=== PATIENT | female | born 1925 | race Caucasian/White ===

== ENCOUNTER → 2016-04-22 | Outpatient (CLI) | payer SELFPAY ==
[2016-04-22 14:15] LABS: CREATININE, URINE 120.3 MG/DL (15-500)
== END ==
LOC: LAB 13:24
PROVIDERS: ATTEND Nurse Practitioner
DX: G30.1 Alzheimer's disease with late onset (principal)
CPT/HCPCS: 82043; 84443

== ENCOUNTER 2016-04-27 14:24 | Emergency (ER) | payer SELFPAY ==
[2016-04-27 14:43] VITALS: RESP 12; TEMP 96.1
[2016-04-27] MEDS ORDERED: NORMAL SALINE 10 ML SYRINGE FLUSH IVP PRN (15:21)
[2016-04-27] MEDS ORDERED: Sodium Chloride 0.9% 1,000 ML PRIMARY IV ONE (15:21)
--- NOTE | 2016-04-27 15:31 | PDOC ---
Fall HPI - General Chief Complaint: Lower Extremity Problem/Injury Stated Complaint: fall, right hip pain Date Seen by Provider: 04/27/16 Time Seen by Provider: 14:35 Source: POSITIVE: Patient Exam Limitations: POSITIVE: No limitations Nurse's Notes Reviewed & Considered: Yes - History of Present Illness Initial Comments: The patient is an 89-year-old female who is brought to the emergency department by ambulance after sustaining a fall yesterday and is now nonambulatory and seems to be complaining of pain in her right hip. She has a history of advanced dementia and currently lives at the care home. She is apparently ambulatory at baseline. She had a fall yesterday that was unwitnessed. Since then she has been unable to bear weight primarily on her right leg. Her guardian is her [id number] who lives in [place]. She was contacted earlier today and she had recommended that the patient be evaluated in the emergency room. On her advanced directives she had signed that she did not want any aggressive or nonaggressive evaluation or treatment or hospitalization. However after the patient's arrival I did contact her guardian and she stated if she had some type of injury that she would want her evaluated and potentially treated even with surgery if it would help her. History is difficult to obtain from the patient. She denies any pain on arrival. Have you received a tetanus shot in the past 10 years?: Unknown - Patient Home Medications Home Medications: Home Medications Acetaminophen [Tylenol] 1 tab PO Q4H PRN tab 04/10/16 Diphenhydramine HCl [Benadryl] 1 tab PO QHS PRN cap 04/10/16 Polyethylene Glycol 3350 [Miralax] 17 gm PO DAILY PRN packet 04/10/16 Quetiapine Fumarate [Seroquel] 1 tab PO BID #60 tab 04/16/16 - Patient Allergies Allergies/Adverse Reactions: Allergies Allergy/AdvReac Type Severity Reaction Status Date / Time No Known Allergies Allergy Unverified 04/27/16 14:29 Past Medical History - heen HEENT History: Denies History Cardiovascular History: Denies History Respiratory History: Denies History Gastrointestinal History: Denies History Genitourinary History: Denies History Endocrine History: Denies History Musculoskeletal History: Denies History Prosthesis or Implant: No Neurological History: Dementia, Alzheimer's Blood Disorders: Denies History Psychiatric History: Denies History Female Reproductive History: Denies History Obstetrical History: Denies History Cancer History: Denies History In Past Year Been Physically Harmed or Verbally Threatened: No History of MDRO: No Tobacco Use: Unknown If Ever Smoked Alcohol Use: None Substance Use Type: None Past Medical History Reviewed: Reviewed - No Changes ROS - Limitations ROS Limitations: Clinical Condition (Patient has advanced dementia) Fall Physical Exam - General Appearance General Appearance: POSITIVE: Other (The patient is awake. She denies pain. History is difficult secondary to dementia) - HEENT HEENT: POSITIVE: Head Inspection Nml, Eyes Inspection Nml, Ears Inspection Nml, Dry Mucous Membranes - Neck Neck: POSITIVE: Trachea Midline - Respiratory / CVS Respiratory / CVS: POSITIVE: Breath Sounds Normal, No Respiratory Distress Peripheral Pulses: Dorsalis-pedis (R): 2+, Dorsalis-pedis (L): 2+ - Abdomen Abdomen: Soft: (All Quadrants), Denies Tenderness: (All Quadrants), No Distention: (All Quadrants) Additional Abdominal Details: Pelvis is grossly stable to palpation - Neuro / Psych Neuro / Psych: POSITIVE: Other (No focal neurologic deficit) - Skin Skin: POSITIVE: Intact - Extremities Additional Extremities Details: She has edema in both extremities bilaterally, with passive range of motion of both hips she does not seem to have significant pain or limitation, however the patient is not overly cooperative with exam, there is no obvious rotation or foreshortening of either lower extremity Fall Progress - Results Reviewed by me Xrays/CTs/US Reviewed by me: Yes Discussed with Radiologist: Yes Radiology Findings: I thought initially on the x-ray of her right hip that she might have a pubic ramus fracture on the right and possibly something with the acetabulum on the left. This was read as no fracture per radiologist. Subsequent CT scan of the pelvis and hips revealed no evidence of fracture per radiologist. - Patient's Progress MDM / ED Course: As mentioned her initial advance directives showed that she did not want any even simple tests or hospitalization as signed per her guardian. After the patient's arrival I did contact her guardian and she stated that she would want her evaluated and treated if she has some type of injury. She was thinking when she signed the paperwork more along the lines of a pneumonia or some medical illness. Therefore x-ray of her hip and pelvis was obtained. She did apparent pelvic x-ray on my interpretation and a CT was ordered for clarification. The hip x-ray was read as negative for fracture by the radiologist and her subsequent CT of the pelvis and hips was also negative for fracture per radiologist. At this point it is unclear what is causing her pain. It is possible that she may have some sciatica or some other occult injury. It is very difficult to obtain any history from the patient and none of her responses seem reliable. I did discuss these findings with the patient' s guardian Brian. The patient will be allowed to go back to the care home. We'll continue Tylenol or ibuprofen as needed for pain and will return to the emergency room if she has any new area of concern, worsening or change in symptoms. She will follow-up with her primary care provider in 5-7 days. I did discuss these findings with the care home staff as well. - Consult Counseled: POSITIVE: Family, RE: Radiology Results, RE: DX, RE: Need for F/U Patient Care Time - Estimated PCT Patient Care Time (In Minutes): 35 Vital Signs - Recent Vital Signs Vital Signs: Vital Signs (Last 8 hours) Temp Pulse Resp BP Pulse Ox 04/27/16 14:33 96.1 F L 66 12 123/55 98 - VS Reviewed Vital Signs Reviewed: Yes Discharge Clinical Impression: Fall, Hip pain, Dementia Condition: Fair Patient Instructions Given at Discharge: Leg Pain (ED) Additional Instructions: The CAT scan of the pelvis and hips did not reveal any obvious fracture. At this point it is unclear what is causing her pain. She will return to the care home. Recommend Tylenol or ibuprofen as needed for pain. Return to the emergency room if she has a different area of concern or if she has no improvement or worsening. Her guardian Brian is aware of current findings and recommendations and in agreement. Follow Up With: ANGELA TORRE [Primary Care Provider] -
--- NOTE | 2016-04-27 15:58 | DI ---
HISTORY: Right hip pain after fall. FINDINGS: There is no evidence of an acute fracture seen within the right hip or pelvis. No disloca tions are apparent. There are no gross soft tissue abnormalities identified. IMPRESSION: 1. No acute osseous abnormalities.
--- NOTE | 2016-04-27 16:13 | DI ---
HISTORY: Right hip pain after fall. TECHNIQUE: Contiguous axial images of the pelvis were obtained and submitted for interpretation. FINDINGS: No fracture is seen within the hips or pelvis. No dislocations are apparent. There are n o gross soft tissue abnormalities identified. There is a 2.6 cm low density lesion in the inferior pole of the left kidney which is partially image d. IMPRESSION: 1. No acute osseous abnormalities. 2. Low density 2.6 cm lesion inferior pole of the left kidney. Ultrasound versus comparison to prior exams is recommended.
== END 2016-04-27 15:50 ==
LOC: ER 14:24
DX: M25.551 Pain in right hip (principal); F03.90 Unspecified dementia, unspecified severity, without behavioral disturbance, psychotic disturbance, mood disturbance, and anxiety; W19.XXXA Unspecified fall, initial encounter; Y92.129 Unspecified place in nursing home as the place of occurrence of the external cause
CPT/HCPCS: 72192; 73502; 99283

== ENCOUNTER 2016-06-06 11:16 | Inpatient (IN) | payer OTHER ==
[2016-06-06] MEDS ORDERED: Sodium Chloride 0.9% 1,000 ML PRIMARY IV ONE (11:42)
[2016-06-06] MEDS ORDERED: MORPHINE SULFATE 4 MG/1 ML IVP ONE ×2 (11:42→13:01)
[2016-06-06] MEDS ORDERED: ONDANSETRON 4 MG/2 ML VIAL IVP ONE (11:42)
--- NOTE | 2016-06-06 11:48 | PDOC ---
Hip Injury/Pain HPI - General Chief Complaint: Lower Extremity Problem/Injury Stated Complaint: LEFT HIP PAIN S/P FALL Date Seen by Provider: 06/06/16 Time Seen by Provider: 11:44 Source: POSITIVE: Patient, EMS Exam Limitations: POSITIVE: Clinical condition (Patient with near unintelligible verbalization.) Nurse's Notes Reviewed & Considered: Yes EMS Report Reviewed & Considered: Verbal - History of Present Illness Initial Comments: Patient was brought in via EMS for deformity and pain status post fall. Patient in a long-term for dementia experienced a fall today it is uncertain whether this was a mechanical fall. She now has deformity of the left hip with increased pain on movement. She has good capillary refill distally significant edema in her bilateral lower extremities. Pulses in her feet are documented via ultrasound and marked. As the patient's inability to communicate adequately I'm unsure of further review of systems. Have you received a tetanus shot in the past 10 years?: Unknown Location: Left Hip Timing: REPORTS: Abrupt Duration: 1/2 hour Severity: Severe Location at Time of Onset: REPORTS: Home Context: REPORTS: Fall Quality: REPORTS: "Pain" Modifying Factors: REPORTS: Movement Symptoms Prior to Fall: REPORTS: Other Similar Symptoms Previously: No Recent Care Received: REPORTS: Denies Any Prior Injuries Related to Current Complaint?: No - Patient Home Medications Home Medications: Home Medications Acetaminophen [Tylenol] 1 tab PO Q4H PRN tab 04/10/16 Polyethylene Glycol 3350 [Miralax] 17 gm PO DAILY PRN packet 04/10/16 - Patient Allergies Allergies/Adverse Reactions: Allergies Allergy/AdvReac Type Severity Reaction Status Date / Time No Known Allergies Allergy Unverified 06/06/16 12:01 Past Medical History - heen HEENT History: Denies History Cardiovascular History: Denies History Respiratory History: Denies History Gastrointestinal History: Denies History Genitourinary History: Denies History Endocrine History: Denies History Musculoskeletal History: Denies History Prosthesis or Implant: No Neurological History: Dementia, Alzheimer's Blood Disorders: Denies History Psychiatric History: Denies History Cancer History: Denies History History of MDRO: No Alcohol Use: None Substance Use Type: None ROS - Limitations ROS Limitations: Mental Impairment (Patient is unable to communicate adequately with very poor verbalization. She has history of Alzheimer's and further review of systems is unavailable.) Hip Injury / Pain Exam - General Appearance General Appearance: POSITIVE: Alert, Anxious, Moderate Distress - Lower Extremity Extremities: POSITIVE: Shortening of Leg, External Rotation of Leg, Hip Pain on Leg Movement, Pedal Edema - HEENT HEENT: POSITIVE: Head Inspection Nml, Eyes Inspection Nml, Ears Inspection Nml, Nose Inspection Nml, PERRL, EOMI - Pupil Size Pupil Size: 4 mm: Bilateral - Neck/Back Neck: POSITIVE: Normal Inspection, Non-Tender - Respiratory / CVS Cardiovascular: POSITIVE: Regular Rate and Rhythm, Heart Sounds Normal Respiratory: POSITIVE: Chest Non Tender, No Ecchymosis, Breath Sounds Normal, No Respiratory Distress Peripheral Pulses: Dorsalis-pedis (R): 1+, Dorsalis-pedis (L): 1+ - Abdomen Abdomen: Soft: (All Quadrants), Normal Bowel Sounds: (All Quadrants), Denies Tenderness: (All Quadrants) - Skin Skin: POSITIVE: Color Normal, No Rash, Warm, Dry - Neuro/Psych Neuro / Psych: POSITIVE: Disoriented to Place, Disoriented to Time Hip Injury / Pain Progress - Results Reviewed by me Xrays/CTs/US Reviewed by me: Yes Discussed with Radiologist: Yes Lab Results Reviewed: Yes Lab Results:: Laboratory Results 06/06/16 Range/Units 11:30 WBC 5.64 (4.8-10.8) 10^3/uL RBC 3.97 L (4.20-5.40) 10^6/uL Hgb 12.2 (12.0-16.0) g/dL Hct 38.9 (37.0-47.0) % MCV 98.0 (81-99) FL MCH 30.7 (27-31) PG MCHC 31.4 L (33-37) g/dL RDW Std Deviation 47.6 (39-50) fL RDW Coeff of Nava 13.6 (11.5-14.5) % Plt Count 225 (140-350) 10*3/uL MPV 10.7 (7.4-12.2) FL Immature Gran % (Auto) 1.6 (0-5) % Neut % (Auto) 66.8 (50-80) % Lymph % (Auto) 21.5 (10-50) % Boundary % (Auto) 9.2 (5-15) % Eos % (Auto) 0.5 (0-8) % Baso % (Auto) 0.4 (0-1) % Immature Gran # (Auto) 0.09 10*3/UL Neut # (Auto) 3.77 10*3/UL Lymph # (Auto) 1.21 10*3/uL Boundary # (Auto) 0.52 (0.3-0.8) 10*3/UL Eos # (Auto) 0.03 10*3/UL Baso # (Auto) 0.02 10*3/UL WBC Morphology Comment Normal morphology (NORM) Plt Morphology Comment Normal morphology (NORM) RBC Morph Comment Normal morphology (NORM) PT 10.7 (9.7-11.4) secs INR 1.08 (0.00-5.90) N/A Sodium 140 (135-145) meq/L Potassium 3.7 L (3.8-5.2) meq/L Chloride 105 (98-112) meq/L Carbon Dioxide 28 (23-33) meq/L Anion Gap 7 (5-20) BUN 21 (7-22) mg/dL Creatinine 0.6 (0.50-1.20) mg/dL Estimated GFR (>60 ml/min/1.73m(2)) BUN/Creatinine Ratio 35.00 H (6-20) Glucose 96 (78-110) mg/dL Calculated Osmolality 292.0 (267-292) mOsm/kg Calcium 8.5 L (8.7-10.7) mg/dL Magnesium 2.1 (1.6-2.4) mg/dL Total Bilirubin 0.5 (0.3-1.2) mg/dL AST 29 (8-39) IU/L ALT 39 (9-52) IU/L Alkaline Phosphatase 104 (38-126) IU/L Total Protein 6.2 (6.1-8.0) g/dL Albumin 3.3 L (3.5-4.8) g/dL Globulin 2.9 (2.50-4.10) g/dL Albumin/Globulin Ratio 1.10 L (1.3-2.0) mg/g EKG Interpretation:: POSITIVE: Normal Sinus Rhythm - Patient's Progress Pain Medication Addressed: POSITIVE: Yes Re-Examine Time: 12:54 Status: POSITIVE: Improved MDM / ED Course: Patient was examined, an IV started, blood drawn and sent to the lab for studies , EKG and radiographic studies were obtained. Patient received IV morphine, Zofran, and normal saline. Next Findings: X-ray, as read by me, shows intertrochanteric comminuted fracture. INR is 1.08. Comprehensive metabolic panel is unremarkable. CBC is unremarkable. EKG per my interpretation shows a normal sinus rhythm with a left bundle branch block present. Chest x-ray shows no acute cardiopulmonary processes. Assessment: Left intertrochanteric comminuted hip fracture. Plan: Admission. I was able to contact Dr. Tito Granado's admitting, and Dr. Lamas the on-call orthopedic surgeon who will be seeing this patient in consultation. - Consult Consult (If Yes, Name of Consulting MD & Time Called): Yes (Cruzito 12:45, Donny 12:50) Consulting MD will see pt:: POSITIVE: [facility] Admit Counseled: POSITIVE: Patient, Family, RE: Lab Results, RE: Radiology Results, RE : DX Patient Care Time - Estimated PCT Patient Care Time (In Minutes): 30 Vital Signs - Recent Vital Signs Vital Signs: Vital Signs (Last 8 hours) Temp Pulse Resp BP Pulse Ox 06/06/16 11:30 98.3 F 66 14 155/69 97 - VS Reviewed Vital Signs Reviewed: Yes Discharge Clinical Impression: Hip fracture Discharge Disposition: Admit to Inpatient Condition: Stable Date Decision to Admit to Inpatient: 06/06/16 Time Decision to Admit to Inpatient: 12:53
[2016-06-06 11:51] LABS: BASOPHILS # (AUTO) 0.02 10*3/UL; BASOPHILS % (AUTO) 0.4 % (0-1); EOSINOPHILS # (AUTO) 0.03 10*3/UL; EOSINOPHILS % (AUTO) 0.5 % (0-8); HEMATOCRIT 38.9 % (37.0-47.0); HEMOGLOBIN 12.2 g/dL (12.0-16.0); LYMPHOCYTES # (AUTO) 1.21 10*3/uL; MEAN CORPUSCULAR HEMOGLOBIN 30.7 PG (27-31); MEAN CORPUSCULAR HGB CONC 31.4 g/dL (33-37); MEAN PLATELET VOLUME 10.7 FL (7.4-12.2); MONOCYTES # (AUTO) 0.52 10*3/UL (0.3-0.8); MONOCYTES % (AUTO) 9.2 % (5-15); NEUTROPHILS # (AUTO) 3.77 10*3/UL; NEUTROPHILS % (AUTO) 66.8 % (50-80); RED BLOOD COUNT 3.97 10^6/uL (4.20-5.40)
--- NOTE | 2016-06-06 11:51 | EKG ---
[address] [place] [address] Measurements Intervals [place] Rate: 66 P: 48 OK: 140 QRS: -34 QRSD: 122 T: 80 QT: 467 QTc: 481 Interpretive Statements SINUS RHYTHM MARKED LEFT AXIS DEVIATION [QRS AXIS < -30] LEFT BUNDLE BRANCH BLOCK [120+ ms QRS DURATION, 80+ ms Q/S IN V1/V2, 85+ ms R IN I/aVL/V5/V6] No previous ECG available for comparison Electronically Signed On 06-06-16 15:21:48 MST by Bakari Villegas MD [email or web address]
[2016-06-06 11:56] LABS: PLATELET MORPHOLOGY COMMENT NORMAL MORPHOLOGY (NORM); RBC MORPHOLOGY COMMENT NORMAL MORPHOLOGY (NORM); WBC MORPHOLOGY COMMENT NORMAL MORPHOLOGY (NORM)
[2016-06-06 11:58] LABS: CALCIUM 8.5 mg/dL (8.7-10.7); MAGNESIUM 2.1 mg/dL (1.6-2.4); SERUM ALBUMIN 3.3 g/dL (3.5-4.8)
--- NOTE | 2016-06-06 13:22 | DI ---
AP CHEST X-RAY, 06/06/2016 11:42 AM : Clinical History: Preoperative clearance. The patient has dementia and cannot provide appropriate his tory. Previous Exam: None at this facility. There is no acute soft tissue or bony abnormality. There is cardiomegaly. CHF is felt not to be prese nt. There is no acute infiltrate or effusion but the lungs are hyperinflated. Mediastinal structures are normal. There are no pulmonary nodules. Readin. There is no acute infiltrate or effusion. 2. Cardiomegaly without CHF.
--- NOTE | 2016-06-06 13:31 | DI ---
AP PELVIS and LEFT HIP, 06/06/2016 11:42 AM: Clinical History: Left hip deformity following a fall. Previous Exam: 04/27/2016 which was an AP pelvis and right hip exam. There is no soft tissue abnormality. There is diffuse osteoporosis. There are nondisplaced fractures of the left superior and inferior pubic rami. No definite additional fracture through the sacrum or p asim is noted. There is no diastases of the sacroiliac joints. 2 views of the left hip show a commin uted intertrochanteric/subtrochanteric fracture. The lesser trochanter is displaced from the shaft. Readin. There is a comminuted intertrochanteric fracture of the left hip. The lesser trochanter is separa joey from the shaft. 2. There are nondisplaced fractures of the left superior and inferior pubic rami. No definite fractu re of the sacrum is seen although there is osteoporosis and an occult fracture could be present. Ther e is no diastases of the SI joints.
--- NOTE | 2016-06-06 13:48 | ORTHO.CON ---
Consult Note - Consult Consult Date: 06/06/16 Reason for Consult: Other (ER consultation for left hip fracture) Requesting Physician: Dr. Andrew Pulido Primary Care Provider: NONE NONE Patient is a 89-year-old female who sustained a fall in the long term landing on her left hip with immediate pain and discomfort deformity and was brought to the emergency room where x-rays were taken and found to have a hip fracture. Patient very limited in poor historian with a history of Alzheimer's disease. Patient complaining of pain in the left hip. Injury happened today she had some fluid to drink a today early but no food since last PM Past Medical History Medical History: History of Alzheimer's disease Tobacco Use: Unknown If Ever Smoked Substance Use Type: None Medication / Allergies Home Medications: Home Medications Medication Instructions Recorded Confirmed Type Acetaminophen [Tylenol] 1 tab PO Q4H PRN tab 04/10/16 06/06/16 History Polyethylene Glycol 3350 [Miralax] 17 gm PO DAILY PRN packet 04/10/16 06/06/16 History Allergies/Adverse Reactions: Allergies Allergy/AdvReac Type Severity Reaction Status Date / Time No Known Allergies Allergy Unverified 06/06/16 12:01 Exam - - Exam: Vital signs show blood pressure 130/65 heart rate is 66 respiratory rate 14 temperature 98.3 and SaO2 of 97% on room air Patient is alert during the examination but does not appear to have orientation to time place or person. She has a no swelling or abnormalities about the head and neck upper extremity seem to have free active range of motion. Left lower extremity is shortened and externally rotated slight bending at the knee. She has some mild pitting edema in both legs bilaterally she has palpable pulses brisk refill. Tenderness to palpation over the hip region. Ankle and toe motion gently appeared to be preserved as well as on the right leg with this seems to be better range of motion. But poorly but dissipates with the requests. Radiographs of the hip show that the patient has a appears to be an intertrochanteric hip fracture though this fracture on the lateral almost seems like it is a fracture around the subtrochanteric region. In any case it's a peritrochanteric hip fracture think this is relatively unstable and a cephalo- medullary nail would most likely be her best option. Results - Labs CBC and BMP: 06/06/16 11:30 06/06/16 11:30 Assessment and Plan - Assessment / Plan Additional Assessment/Plan Details: Impression: Left comminuted peritrochanteric hip fracture Alzheimer's Plan: Patient will undergo medical clearance by the hospitalist, after discussing the case with hospitalist we will proceed with surgical stabilization of this fracture. In moving forward I think a cephalo-medullary nail would be the patient's best option. We'll proceed along these lines at the current time.
[2016-06-06] MEDS ORDERED: ceFAZolin Inj 2gm (Premix) 50 ML IV ONE (14:40)
[2016-06-06] MEDS ORDERED: Lactated Ringers 1,000 ML PRIMARY IV ONE (15:26)
[2016-06-06] MEDS ORDERED: KETAMINE 100 MG/1 ML - 5 ML ONE (16:07)
[2016-06-06] MEDS ORDERED: MIDAZOLAM 5 MG/1 ML ONE (16:07)
[2016-06-06] MEDS ORDERED: fentaNYL Inj 100 MCG/2 ML VIAL ONE (16:07)
[2016-06-06] MEDS ORDERED: ePHEDrine Inj 50 MG/ML AMP ONE (16:40)
[2016-06-06 17:07] LABS: BILIRUBIN,URINE NEGATIVE (NEG); CLARITY,URINE CLEAR (CLEAR); COLOR,URINE YELLOW; GLUCOSE, URINE (UA) NEGATIVE (NEG); NITRATE,URINE NEGATIVE (NEG); OCCULT BLOOD,URINE NEGATIVE (NEG); PROTEIN,URINE NEGATIVE (NEG)
[2016-06-06] MEDS ORDERED: BACITRACIN 50,000 UNIT VIAL IRRIG ONE (17:25)
[2016-06-06] MEDS ORDERED: Sodium Chloride 0.9% vial 20 ML ONE (17:26)
[2016-06-06 17:32] LABS: RBC,URINE 0-3 /hpf
[2016-06-06 17:33] LABS: URINE CRYSTALS FEW
[2016-06-06] MEDS ORDERED: Sodium Chloride 0.9% 500 ML ONE (17:34)
[2016-06-06] MEDS ORDERED: Hetastarch 6% + NS 500 ML IV ONE ×2 (17:40→19:45)
--- NOTE | 2016-06-06 17:44 | PDOC ---
History and Physical - History of Present Illness History of Present Illness: This very nice 89-year-old female past medical history significant for Alzheimer 's disease state in the fall at the skilled nursing she landed on her left hip she had pain and discomfort and deformity was seen in the ER and was found to have a hip fracture patient is a poor historian secondary to her dementia and Alzheimer's disease she was admitted for further evaluation and treatment Dr. East was consulted for her possible surgery patient is postop receiving blood Past Medical History Medical History: History of Alzheimer's disease Tobacco Use: Unknown If Ever Smoked Substance Use Type: None Alcohol Use: None Medication / Allergies Home Medications: Home Medications Medication Instructions Recorded Confirmed Type Acetaminophen [Tylenol] 1 tab PO Q4H PRN tab 04/10/16 06/06/16 History Polyethylene Glycol 3350 [Miralax] 17 gm PO DAILY PRN packet 04/10/16 06/06/16 History Allergies/Adverse Reactions: Allergies Allergy/AdvReac Type Severity Reaction Status Date / Time No Known Allergies Allergy Unverified 06/06/16 12:01 Review of Systems - Review of Systems All Systems: Reviewed & No Additional Complaints Except as Stated - Respiratory Respiratory: DENIES: Negative System Review, Cough, Sputum, Dyspnea At Rest, Dyspnea with Exertion, Pleuritic Pain, Hemoptysis, Wheezing, Other, See HPI - Cardiovascular Cardiovascular: DENIES: Negative System Review, Chest Pain, Edema, Syncope, Palpitations, Orthopnea, Paroxysmal Nocturnal Dyspnea, Other, See HPI - Gastrointestinal Gastrointestinal / Abdominal: DENIES: Negative System Review, Nausea, Vomiting, Diarrhea, Constipation, Abdominal Pain, Bloody Stool, Poor Appetite, Heartburn, Regurgitation, Bloating, Lactose Intolerance, Melena, Bright Red Blood Per Rectum, Other, See HPI Exam - Vitals Vital Signs: Vital Signs Temperature 98.4 F Temperature Source Temporal Artery Scan Pulse Rate 74 Respiratory Rate 17 Blood Pressure 123/72 Oxygen Flow Rate 2 Oxygen Delivery Method Nasal Cannula - General General Appearance: POSITIVE: No Acute Distress Additional General Exam Details: Patient has postop receiving blood at present time - Head Head Exam: POSITIVE: Normal Inspection, Normocephalic, Atraumatic - Respiratory Respiratory Exam: POSITIVE: Clear to Auscultation - Bilaterally, Breathing Non Labored, Normal To Percussion - Cardiovascular Cardiovascular Exam: POSITIVE: RRR, No Murmur, No Clicks - GI/Abdominal GI/Abdominal Exam: POSITIVE: Normal Bowel Sounds, Non Distended, Soft - Rectal Rectal Exam: POSITIVE: Deferred - External Exam: POSITIVE: Deferred - Extremities Extremities Exam: POSITIVE: Normal Capillary Refill, No Clubbing Present, No Edema Present - Neurological Additional Neurological Exam Details: Postop opens eyes Results - Labs CBC and BMP: 06/06/16 20:27 06/06/16 11:30 Labs - Last 24 Hours: Laboratory Results 06/06/16 06/06/16 Range/Units 13:59 15:16 Ur Collection Type cath Urine Color Yellow Urine Clarity Clear (CLEAR) Urine pH 7.0 (5.0-8.5) Ur Specific [place] 1.015 (1.005-1.030) Urine Protein Negative (NEG) mg/dl Urine Glucose (UA) Negative (NEG) mg/dL Urine Ketones Trace (NEG) Urine Occult Blood Negative (NEG) Urine Nitrate Negative (NEG) Urine Bilirubin Negative (NEG) Urine Urobilinogen 2.0 (0.2) mg/dL Ur Leukocyte Esterase Negative (NEG) Urine RBC 0-3 (NONE) /hpf Urine WBC None (NONE) Ur Squamous Epith Cells None (NONE) Ur Renal Epithelial Cell None (NONE) Urine Crystals Few Urine Bacteria None (NONE) Urine Casts None Urine Mucus Few (NONE) Urine Trichomonas None (NONE) Urine Yeast None (NONE) Blood Type O POSITIVE Antibody Screen Negative Assessment and Plan - Patient Problems (1) Hip fracture Current Visit: Yes Status: Acute Comment: Consult Dr. East for repair (2) Dementia Current Visit: No Status: Acute Comment: Chronic stable (3) Fall Current Visit: No Status: Acute (4) Hip pain Current Visit: No Status: Acute Comment: IV morphine
[2016-06-06] MEDS ORDERED: Sodium Chloride 0.9% 250 ML IV ONE ×2 (19:07→21:13)
[2016-06-06 20:31] LABS: HEMATOCRIT 22.3 % (37.0-47.0)
[2016-06-06 20:34] LABS: HEMOGLOBIN 6.9 g/dL (12.0-16.0)
[2016-06-06] MEDS ORDERED: NEOMYCIN/BACITRACIN/POLYMYXIN 0.9 GM OINT PACKET TOPICAL ONE (21:22)
[2016-06-06] MEDS ORDERED: BISACODYL 5 MG TABLET PO PRN ×2 (21:54)
[2016-06-06] MEDS ORDERED: Prochlorperazine Tab 10 MG TAB PO PRN (21:54)
[2016-06-06] MEDS ORDERED: NORMAL SALINE 10 ML SYRINGE FLUSH IVP PRN (21:54)
[2016-06-06] MEDS ORDERED: Sodium Chloride 0.9% 1,000 ML PRIMARY IV SCH (21:54)
[2016-06-06] MEDS ORDERED: diphenhydrAMINE 25 MG CAPSULE PO PRN (21:54)
[2016-06-06] MEDS ORDERED: BISACODYL 10 MG SUPPOSITORY RECTAL PRN (21:54)
[2016-06-06] MEDS ORDERED: Ondansetron ODT Tab 8 MG TAB PO PRN (21:54)
[2016-06-06] MEDS ORDERED: ACETAMINOPHEN 325 MG TABLET PO PRN (21:54)
[2016-06-06] MEDS ORDERED: CALCIUM CARBONATE 500 MG (TUMS) CHEWABLE TABLET PO PRN (21:54)
[2016-06-06] MEDS ORDERED: Lactated Ringers 1,000 ML PRIMARY IV SCH (21:54)
[2016-06-06] MEDS ORDERED: ONDANSETRON 4 MG/2 ML VIAL IVP PRN ×2 (21:54)
[2016-06-06] MEDS ORDERED: MAG HYDROX/AL HYDROX/SIMETH 30 ML SUSP PO PRN (21:54)
[2016-06-06] MEDS ORDERED: IBUPROFEN 400 MG TABLET PO PRN (21:54)
[2016-06-06] MEDS ORDERED: LIDOCAINE W/ SODIUM BICARB 0.5 ML SYR SUBD PRN (21:54)
[2016-06-06] MEDS: MORPHINE SULFATE 2 MG/1 ML IVP PRN (22:41)
[2016-06-06] MEDS: ASPIRIN 325 MG EC TABLET PO SCH (23:01)
[2016-06-06] MEDS: DOCUSATE 100 MG CAPSULE PO SCH (23:01)
[2016-06-07] MEDS: ceFAZolin Inj 2gm (Premix) 2 GM in Dextrose 1 BAG IV SCH ×2 (00:35→06:04)
[2016-06-07] MEDS: MORPHINE SULFATE 2 MG/1 ML IVP PRN ×3 (02:44→07:15)
[2016-06-07 06:24] LABS: BASOPHILS # (AUTO) 0.02 10*3/UL; BASOPHILS % (AUTO) 0.2 % (0-1); EOSINOPHILS # (AUTO) 0 10*3/UL; EOSINOPHILS % (AUTO) 0 % (0-8); HEMATOCRIT 22.2 % (37.0-47.0); HEMOGLOBIN 7.3 g/dL (12.0-16.0); LYMPHOCYTES # (AUTO) 0.56 10*3/uL; MEAN CORPUSCULAR HEMOGLOBIN 31.7 PG (27-31); MEAN CORPUSCULAR HGB CONC 32.9 g/dL (33-37); MEAN PLATELET VOLUME 11.3 FL (7.4-12.2); MONOCYTES # (AUTO) 0.55 10*3/UL (0.3-0.8); MONOCYTES % (AUTO) 6.7 % (5-15); NEUTROPHILS % (AUTO) 85.8 % (50-80)
[2016-06-07 06:30] LABS: BUN/CREATININE RATIO 26.66 (6-20); CALCIUM 6.8 mg/dL (8.7-10.7)
[2016-06-07 06:32] LABS: PLATELET MORPHOLOGY COMMENT NORMAL MORPHOLOGY (NORM); RBC MORPHOLOGY COMMENT NORMAL MORPHOLOGY (NORM); WBC MORPHOLOGY COMMENT NORMAL MORPHOLOGY (NORM)
[2016-06-07] MEDS ORDERED: Sodium Chloride 0.9% 500 ML PRIMARY IV ONE (07:24)
[2016-06-07] MEDS: DOCUSATE 100 MG CAPSULE PO SCH (10:07)
[2016-06-07] MEDS: HYDROcodone-APAP 5 MG -325 MG TABLET PO PRN ×3 (10:08→20:01)
[2016-06-07] MEDS: ASPIRIN 325 MG EC TABLET PO SCH (10:08)
[2016-06-07] MEDS ORDERED: Sodium Chloride 0.9% 1,000 ML PRIMARY IV ONE ×3 (10:21→17:48)
--- NOTE | 2016-06-07 10:48 | PDOC(PROG) ---
Interval History: Doing well she is awake alert severe dementia denies pain Objective : Data - Labs CBC and BMP: 06/07/16 05:44 06/07/16 05:44 Labs - Last 24 Hours: Laboratory Results 06/06/16 06/06/16 06/06/16 Range/Units 13:59 15:16 20:27 WBC (4.8-10.8) 10^3/uL RBC (4.20-5.40) 10^6/uL Hgb 6.9 L* (12.0-16.0) g/dL Hct 22.3 L (37.0-47.0) % MCV (81-99) FL MCH (27-31) PG MCHC (33-37) g/dL RDW Std Deviation (39-50) fL RDW Coeff of Nava (11.5-14.5) % Plt Count (140-350) 10*3/uL MPV (7.4-12.2) FL Immature Gran % (Auto) (0-5) % Neut % (Auto) (50-80) % Lymph % (Auto) (10-50) % [place] % (Auto) (5-15) % Eos % (Auto) (0-8) % Baso % (Auto) (0-1) % Immature Gran # (Auto) 10*3/UL Neut # (Auto) 10*3/UL Lymph # (Auto) 10*3/uL [place] # (Auto) (0.3-0.8) 10*3/UL Eos # (Auto) 10*3/UL Baso # (Auto) 10*3/UL WBC Morphology Comment (NORM) Plt Morphology Comment (NORM) RBC Morph Comment (NORM) Sodium (135-145) meq/L Potassium (3.8-5.2) meq/L Chloride (98-112) meq/L Carbon Dioxide (23-33) meq/L Anion Gap (5-20) BUN (7-22) mg/dL Creatinine (0.50-1.20) mg/dL Estimated GFR (>60 ml/min/1.73m(2)) BUN/Creatinine Ratio (6-20) Glucose (78-110) mg/dL Calculated Osmolality (267-292) mOsm/kg Calcium (8.7-10.7) mg/dL Ur Collection Type cath Urine Color Yellow Urine Clarity Clear (CLEAR) Urine pH 7.0 (5.0-8.5) Ur Specific [place] 1.015 (1.005-1.030) Urine Protein Negative (NEG) mg/dl Urine Glucose (UA) Negative (NEG) mg/dL Urine Ketones Trace (NEG) Urine Occult Blood Negative (NEG) Urine Nitrate Negative (NEG) Urine Bilirubin Negative (NEG) Urine Urobilinogen 2.0 (0.2) mg/dL Ur Leukocyte Esterase Negative (NEG) Urine RBC 0-3 (NONE) /hpf Urine WBC None (NONE) Ur Squamous Epith Cells None (NONE) Ur Renal Epithelial Cell None (NONE) Urine Crystals Few Urine Bacteria None (NONE) Urine Casts None Urine Mucus Few (NONE) Urine Trichomonas None (NONE) Urine Yeast None (NONE) Blood Type O POSITIVE Antibody Screen Negative Crossmatch See Detail 06/07/16 Range/Units 05:44 WBC 8.27 (4.8-10.8) 10^3/uL RBC 2.30 L (4.20-5.40) 10^6/uL Hgb 7.3 L (12.0-16.0) g/dL Hct 22.2 L (37.0-47.0) % MCV 96.5 (81-99) FL MCH 31.7 H (27-31) PG MCHC 32.9 L (33-37) g/dL RDW Std Deviation 52.2 H (39-50) fL RDW Coeff of Nava 15.8 H (11.5-14.5) % Plt Count 152 (140-350) 10*3/uL MPV 11.3 (7.4-12.2) FL Immature Gran % (Auto) 0.5 (0-5) % Neut % (Auto) 85.8 H (50-80) % Lymph % (Auto) 6.8 L (10-50) % [place] % (Auto) 6.7 (5-15) % Eos % (Auto) 0 (0-8) % Baso % (Auto) 0.2 (0-1) % Immature Gran # (Auto) 0.04 10*3/UL Neut # (Auto) 7.10 10*3/UL Lymph # (Auto) 0.56 10*3/uL [place] # (Auto) 0.55 (0.3-0.8) 10*3/UL Eos # (Auto) 0 10*3/UL Baso # (Auto) 0.02 10*3/UL WBC Morphology Comment Normal morphology (NORM) Plt Morphology Comment Normal morphology (NORM) RBC Morph Comment Normal morphology (NORM) Sodium 140 (135-145) meq/L Potassium 3.6 L (3.8-5.2) meq/L Chloride 112 (98-112) meq/L Carbon Dioxide 25 (23-33) meq/L Anion Gap 3 L (5-20) BUN 16 (7-22) mg/dL Creatinine 0.6 (0.50-1.20) mg/dL Estimated GFR (>60 ml/min/1.73m(2)) BUN/Creatinine Ratio 26.66 H (6-20) Glucose 122 H (78-110) mg/dL Calculated Osmolality 291.0 (267-292) mOsm/kg Calcium 6.8 L (8.7-10.7) mg/dL Ur Collection Type Urine Color Urine Clarity (CLEAR) Urine pH (5.0-8.5) Ur Specific [place] (1.005-1.030) Urine Protein (NEG) mg/dl Urine Glucose (UA) (NEG) mg/dL Urine Ketones (NEG) Urine Occult Blood (NEG) Urine Nitrate (NEG) Urine Bilirubin (NEG) Urine Urobilinogen (0.2) mg/dL Ur Leukocyte Esterase (NEG) Urine RBC (NONE) /hpf Urine WBC (NONE) Ur Squamous Epith Cells (NONE) Ur Renal Epithelial Cell (NONE) Urine Crystals Urine Bacteria (NONE) Urine Casts Urine Mucus (NONE) Urine Trichomonas (NONE) Urine Yeast (NONE) Blood Type Antibody Screen Crossmatch Objective : Exam - Head Head Exam: Normal Inspection, Normocephalic - Respiratory Respiratory Exam: Clear to Auscultation - Bilaterally, Breathing Non Labored, Normal To Percussion, Normal to Percussion and Palpation - Cardiovascular Cardiovascular Exam: RRR, No Murmur, No Clicks, No Gallops, No Rubs - GI/Abdominal GI/Abdominal Exam: Normal Bowel Sounds, Non Tender, Non Distended, Soft - Extremities Extremities Exam: No Clubbing Present, No Edema Present, No Cyanosis Present - Neurological Neurological Exam: Alert Assessment and Plan - Patient Problems (1) Hip fracture Current Visit: Yes Status: Acute Comment: Status post repair patient required the 2 units of packed red blood cells second one is being transfused now also poor urine output we will bolus the patient with 1 L normal saline and then resume normal saline with 20 of K (2) Dementia Current Visit: No Status: Acute Comment: Stable (3) Fall Current Visit: No Status: Acute (4) Hip pain Current Visit: No Status: Acute (5) Status post-operative repair of closed fracture of left hip Current Visit: Yes Status: Acute Comment: Defer to Dr. East for anticoagulation in postop PT OT instructions
--- NOTE | 2016-06-07 15:18 | CRNA.PROGR ---
Anesthesia Note Anesthesia Progress Note: 07 June 2016 1505 Hours Resting comfortably in bed. Mentation still clouded. ( Dementia) Still anemic, see labs> I was under the impression that she was to receive a 2nd unit last night. Reported to have received that this am after am labs drawn. Urine output appears satisfactory. Intake and Output (24hr x 4 totals) 06/05/16 06/06/16 06/07/16 06/08/16 05:59 05:59 05:59 05:59 Intake Total 3865 1559 Output Total 1530 Balance 2335 1559 Laboratory Results 06/06/16 06/06/16 06/06/16 Range/Units 13:59 15:16 20:27 WBC (4.8-10.8) 10^3/uL RBC (4.20-5.40) 10^6/uL Hgb 6.9 L* (12.0-16.0) g/dL Hct 22.3 L (37.0-47.0) % MCV (81-99) FL MCH (27-31) PG MCHC (33-37) g/dL RDW Std Deviation (39-50) fL RDW Coeff of Nava (11.5-14.5) % Plt Count (140-350) 10*3/uL MPV (7.4-12.2) FL Immature Gran % (Auto) (0-5) % Neut % (Auto) (50-80) % Lymph % (Auto) (10-50) % [place] % (Auto) (5-15) % Eos % (Auto) (0-8) % Baso % (Auto) (0-1) % Immature Gran # (Auto) 10*3/UL Neut # (Auto) 10*3/UL Lymph # (Auto) 10*3/uL [place] # (Auto) (0.3-0.8) 10*3/UL Eos # (Auto) 10*3/UL Baso # (Auto) 10*3/UL WBC Morphology Comment (NORM) Plt Morphology Comment (NORM) RBC Morph Comment (NORM) Sodium (135-145) meq/L Potassium (3.8-5.2) meq/L Chloride (98-112) meq/L Carbon Dioxide (23-33) meq/L Anion Gap (5-20) BUN (7-22) mg/dL Creatinine (0.50-1.20) mg/dL Estimated GFR (>60 ml/min/1.73m(2)) BUN/Creatinine Ratio (6-20) Glucose (78-110) mg/dL Calculated Osmolality (267-292) mOsm/kg Calcium (8.7-10.7) mg/dL Ur Collection Type cath Urine Color Yellow Urine Clarity Clear (CLEAR) Urine pH 7.0 (5.0-8.5) Ur Specific [place] 1.015 (1.005-1.030) Urine Protein Negative (NEG) mg/dl Urine Glucose (UA) Negative (NEG) mg/dL Urine Ketones Trace (NEG) Urine Occult Blood Negative (NEG) Urine Nitrate Negative (NEG) Urine Bilirubin Negative (NEG) Urine Urobilinogen 2.0 (0.2) mg/dL Ur Leukocyte Esterase Negative (NEG) Urine RBC 0-3 (NONE) /hpf Urine WBC None (NONE) Ur Squamous Epith Cells None (NONE) Ur Renal Epithelial Cell None (NONE) Urine Crystals Few Urine Bacteria None (NONE) Urine Casts None Urine Mucus Few (NONE) Urine Trichomonas None (NONE) Urine Yeast None (NONE) Blood Type O POSITIVE Antibody Screen Negative Crossmatch See Detail 06/07/16 Range/Units 05:44 WBC 8.27 (4.8-10.8) 10^3/uL RBC 2.30 L (4.20-5.40) 10^6/uL Hgb 7.3 L (12.0-16.0) g/dL Hct 22.2 L (37.0-47.0) % MCV 96.5 (81-99) FL MCH 31.7 H (27-31) PG MCHC 32.9 L (33-37) g/dL RDW Std Deviation 52.2 H (39-50) fL RDW Coeff of Nava 15.8 H (11.5-14.5) % Plt Count 152 (140-350) 10*3/uL MPV 11.3 (7.4-12.2) FL Immature Gran % (Auto) 0.5 (0-5) % Neut % (Auto) 85.8 H (50-80) % Lymph % (Auto) 6.8 L (10-50) % [place] % (Auto) 6.7 (5-15) % Eos % (Auto) 0 (0-8) % Baso % (Auto) 0.2 (0-1) % Immature Gran # (Auto) 0.04 10*3/UL Neut # (Auto) 7.10 10*3/UL Lymph # (Auto) 0.56 10*3/uL [place] # (Auto) 0.55 (0.3-0.8) 10*3/UL Eos # (Auto) 0 10*3/UL Baso # (Auto) 0.02 10*3/UL WBC Morphology Comment Normal morphology (NORM) Plt Morphology Comment Normal morphology (NORM) RBC Morph Comment Normal morphology (NORM) Sodium 140 (135-145) meq/L Potassium 3.6 L (3.8-5.2) meq/L Chloride 112 (98-112) meq/L Carbon Dioxide 25 (23-33) meq/L Anion Gap 3 L (5-20) BUN 16 (7-22) mg/dL Creatinine 0.6 (0.50-1.20) mg/dL Estimated GFR (>60 ml/min/1.73m(2)) BUN/Creatinine Ratio 26.66 H (6-20) Glucose 122 H (78-110) mg/dL Calculated Osmolality 291.0 (267-292) mOsm/kg Calcium 6.8 L (8.7-10.7) mg/dL Ur Collection Type Urine Color Urine Clarity (CLEAR) Urine pH (5.0-8.5) Ur Specific [place] (1.005-1.030) Urine Protein (NEG) mg/dl Urine Glucose (UA) (NEG) mg/dL Urine Ketones (NEG) Urine Occult Blood (NEG) Urine Nitrate (NEG) Urine Bilirubin (NEG) Urine Urobilinogen (0.2) mg/dL Ur Leukocyte Esterase (NEG) Urine RBC (NONE) /hpf Urine WBC (NONE) Ur Squamous Epith Cells (NONE) Ur Renal Epithelial Cell (NONE) Urine Crystals Urine Bacteria (NONE) Urine Casts Urine Mucus (NONE) Urine Trichomonas (NONE) Urine Yeast (NONE) Blood Type Antibody Screen Crossmatch Most likely will need more RBC's Anesthetic difficulties not apparent at this time. Luz Elena Flaherty MS, HEAD OF [employer]BILE Intake and Output - 8hrs 06/06/16 06/07/16 06/07/16 06/07/16 21:59 05:59 13:59 21:59 Intake: IV 2700 665 999 Intake Oral Amount 220 Intake, Blood Product 500 340 Amount Packed Red Bld Cells 340 Unit [id number] Output: Output, Drainage Amount 30 Left Hip 30 Output, Urinary Catheter 225 Amount Output, Urine Amount 575 Output, Estimated Blood 670 30 Loss Amount Other: Percent Meal Consumed Refused Weight 58.967 kg 58.967 kg Weight Measurement Method Estimated by Patient
[2016-06-07] MEDS ORDERED: NORMAL SALINE 1000 ML IV SCH (15:30)
[2016-06-07 18:12] LABS: HEMOGLOBIN 8.3 g/dL (12.0-16.0); MEAN CORPUSCULAR HEMOGLOBIN 29.9 PG (27-31); MEAN CORPUSCULAR HGB CONC 31.9 g/dL (33-37); MEAN PLATELET VOLUME 11.2 FL (7.4-12.2); RED BLOOD COUNT 2.78 10^6/uL (4.20-5.40)
[2016-06-07] MEDS: Senna/Docusate Tab 1 TAB TAB PO SCH (20:01)
[2016-06-07] MEDS ORDERED: FUROSEMIDE 10 MG/1 ML - 4 ML IVP ONE (22:02)
[2016-06-08] MEDS: HYDROcodone-APAP 5 MG -325 MG TABLET PO PRN ×5 (00:02→20:51)
[2016-06-08] MEDS: NORMAL SALINE 10 ML SYRINGE FLUSH IVP PRN (00:03)
--- NOTE | 2016-06-08 00:04 | ORTHO.PROG ---
Last Taken Vital Signs: Vital Signs - Last Taken Temperature 99.1 F 06/07/16 21:00 Pulse Rate 85 06/07/16 21:00 Respiratory Rate 18 06/07/16 21:00 Blood Pressure 105/63 06/07/16 21:00 Pulse Ox 99 06/07/16 21:00 Subjective: Patient not communicating but will open eyes when talking to her and answers questions but does not appear to really understand questions Objective: Dressings clean and dry generally appears to have normal motor and sensory exam. Patient with pitting edema but not markedly changed previously leg rotation is symmetric as well as leg lengths Laboratory Results 06/06/16 06/07/16 06/07/16 Range/Units 15:16 05:44 18:09 WBC 8.27 8.72 (4.8-10.8) 10^3/uL RBC 2.30 L 2.78 L (4.20-5.40) 10^6/uL Hgb 7.3 L 8.3 L (12.0-16.0) g/dL Hct 22.2 L 26.0 L (37.0-47.0) % MCV 96.5 93.5 (81-99) FL MCH 31.7 H 29.9 (27-31) PG MCHC 32.9 L 31.9 L (33-37) g/dL RDW Std Deviation 52.2 H 56.6 H (39-50) fL RDW Coeff of Nava 15.8 H 17.3 H (11.5-14.5) % Plt Count 152 133 L (140-350) 10*3/uL MPV 11.3 11.2 (7.4-12.2) FL Immature Gran % (Auto) 0.5 (0-5) % Neut % (Auto) 85.8 H (50-80) % Lymph % (Auto) 6.8 L (10-50) % [place] % (Auto) 6.7 (5-15) % Eos % (Auto) 0 (0-8) % Baso % (Auto) 0.2 (0-1) % Immature Gran # (Auto) 0.04 10*3/UL Neut # (Auto) 7.10 10*3/UL Lymph # (Auto) 0.56 10*3/uL [place] # (Auto) 0.55 (0.3-0.8) 10*3/UL Eos # (Auto) 0 10*3/UL Baso # (Auto) 0.02 10*3/UL WBC Morphology Comment Normal morphology (NORM) Plt Morphology Comment Normal morphology (NORM) RBC Morph Comment Normal morphology (NORM) Sodium 140 (135-145) meq/L Potassium 3.6 L (3.8-5.2) meq/L Chloride 112 (98-112) meq/L Carbon Dioxide 25 (23-33) meq/L Anion Gap 3 L (5-20) BUN 16 (7-22) mg/dL Creatinine 0.6 (0.50-1.20) mg/dL Estimated GFR (>60 ml/min/1.73m(2)) BUN/Creatinine Ratio 26.66 H (6-20) Glucose 122 H (78-110) mg/dL Calculated Osmolality 291.0 (267-292) mOsm/kg Calcium 6.8 L (8.7-10.7) mg/dL Blood Type O POSITIVE Antibody Screen Negative Crossmatch See Detail Intake and Output - 8hrs 06/07/16 06/07/16 06/07/16 06/08/16 05:59 13:59 21:59 05:59 Intake: IV 549 167 6552 Intake Oral Amount 220 340 Intake, Blood Product 340 Amount Packed Red Bld Cells 340 Unit [id number] Output: Output, Drainage Amount 30 80 Left Hip 30 80 Output, Urinary Catheter 225 Amount Output, Urine Amount 150 Output, Estimated Blood 30 Loss Amount Other: Percent Meal Consumed Refused 25% Weight 58.967 kg Weight Measurement Method Estimated by Patient Assessment: Left comminuted peritrochanteric fracture with supplemental medullary nail Anemia Alzheimer Plan: Continue with pain control Transfusion of packed RBCs to bring hematocrit and hemoglobin to safely level. Therapy when able to tolerate
[2016-06-08 05:40] LABS: HEMATOCRIT 24.4 % (37.0-47.0); HEMOGLOBIN 7.7 g/dL (12.0-16.0); MEAN CORPUSCULAR HGB CONC 31.6 g/dL (33-37); MEAN PLATELET VOLUME 11.7 FL (7.4-12.2); RED BLOOD COUNT 2.57 10^6/uL (4.20-5.40)
[2016-06-08 05:48] LABS: BUN/CREATININE RATIO 22.85 (6-20); CALCIUM 7.2 mg/dL (8.7-10.7); SERUM ALBUMIN 1.7 g/dL (3.5-4.8)
[2016-06-08] MEDS ORDERED: Sodium Chloride 0.9% 500 ML PRIMARY IV ONE (08:33)
[2016-06-08] MEDS ORDERED: FUROSEMIDE 10 MG/1 ML - 2 ML VIAL IVP ONE (08:33)
[2016-06-08] MEDS ORDERED: predniSONE Tab 20 MG TAB PO ONE (08:33)
[2016-06-08] MEDS: Senna/Docusate Tab 1 TAB TAB PO SCH ×2 (09:39→20:51)
--- NOTE | 2016-06-08 10:07 | OT.PROG ---
Progress Note Progress Note: s: pt was in bed upon arrival, nursing reports her blood levels are low and they will be completing a transfusion O: pt required a dependent transfer from supine to sit EOB, pt was able to sit EOB for 5 minutes with min A. pt required dependent sit to stand x 2 for 30 seconds each, pt was not able to bear any weight today on either leg. pt as also a dependent transfer from sit to supine. pt is unable to express a number for a pain level although reacts to movement as if she is around 8/10 A: we tolerated the movement although was unable to assist on any level. pt was able to sit EOB with min A for 5 min. P: we will continue to increase movement and EOB sitting to return pt to care center
--- NOTE | 2016-06-08 12:48 | PDOC(PROG) ---
Interval History: No change clinically blood pressure improved to the receiving 2 units of packed red blood cells patient has severe dementia unable to get any info appears comfortable Objective : Data - Labs CBC and BMP: 06/08/16 04:19 06/08/16 04:19 Labs - Last 24 Hours: Laboratory Results 06/06/16 06/07/16 06/08/16 Range/Units 15:16 18:09 04:19 WBC 8.72 9.84 (4.8-10.8) 10^3/uL RBC 2.78 L 2.57 L (4.20-5.40) 10^6/uL Hgb 8.3 L 7.7 L (12.0-16.0) g/dL Hct 26.0 L 24.4 L (37.0-47.0) % MCV 93.5 94.9 (81-99) FL MCH 29.9 30.0 (27-31) PG MCHC 31.9 L 31.6 L (33-37) g/dL RDW Std Deviation 56.6 H 56.0 H (39-50) fL RDW Coeff of Nava 17.3 H 17.0 H (11.5-14.5) % Plt Count 133 L 160 (140-350) 10*3/uL MPV 11.2 11.7 (7.4-12.2) FL Sodium 144 (135-145) meq/L Potassium 3.6 L (3.8-5.2) meq/L Chloride 115 H (98-112) meq/L Carbon Dioxide 23 (23-33) meq/L Anion Gap 6 (5-20) BUN 16 (7-22) mg/dL Creatinine 0.7 (0.50-1.20) mg/dL Estimated GFR (>60 ml/min/1.73m(2)) BUN/Creatinine Ratio 22.85 H (6-20) Glucose 96 (78-110) mg/dL Calculated Osmolality 298.0 H (267-292) mOsm/kg Calcium 7.2 L (8.7-10.7) mg/dL Total Bilirubin 0.6 (0.3-1.2) mg/dL AST 30 (8-39) IU/L ALT 27 (9-52) IU/L Alkaline Phosphatase 52 (38-126) IU/L Total Protein 3.8 L (6.1-8.0) g/dL Albumin 1.7 L (3.5-4.8) g/dL Globulin 2.1 L (2.50-4.10) g/dL Albumin/Globulin Ratio 0.80 L (1.3-2.0) mg/g Blood Type O POSITIVE Antibody Screen Negative Crossmatch See Detail Objective : Exam - General General Appearance: No Acute Distress, Cooperative - Respiratory Respiratory Exam: Clear to Auscultation - Bilaterally, Breathing Non Labored, Normal To Percussion - Cardiovascular Cardiovascular Exam: RRR, No Murmur, No Clicks, No Gallops - GI/Abdominal GI/Abdominal Exam: Normal Bowel Sounds, Non Tender, Non Distended, Soft Assessment and Plan - Patient Problems (1) Acute blood loss as cause of postoperative anemia Current Visit: Yes Status: Acute Comment: Blood pressures marginals urine output improved a little with 3 L of IV fluid bolus hemoglobin down to 7.7 we'll type and cross and transfuse 2 units of blood this should help with her blood pressure and the urine output (2) Hip fracture Current Visit: Yes Status: Acute Comment: Deferred to orthopedic surgery (3) Dementia Current Visit: No Status: Acute Comment: Stable (4) Fall Current Visit: No Status: Acute (5) Hip pain Current Visit: No Status: Acute (6) Status post-operative repair of closed fracture of left hip Current Visit: Yes Status: Acute
--- NOTE | 2016-06-08 14:35 | ORTHO.PROG ---
Last Taken Vital Signs: Vital Signs - Last Taken Temperature 98.6 F 06/08/16 13:50 Pulse Rate 76 06/08/16 13:50 Respiratory Rate 16 06/08/16 13:50 Blood Pressure 131/94 06/08/16 13:50 Pulse Ox 92 06/08/16 13:50 Subjective: Patient seems to be doing well not very conversive she does talk but does not answer questions. Objective: Patient with a moderate amount of swelling in the leg. The incisions are clean and dry no evidence of infection rotational leg seems to be good. Intake and Output - 8hrs 06/07/16 06/08/16 06/08/16 06/08/16 21:59 05:59 13:59 21:59 Intake: IV 2879 821 Intake Oral Amount 340 120 Intake, Blood Product 0 Amount Packed Red Bld Cells 0 Unit [id number] Output: Output, Drainage Amount 95 3 2 Left Hip 80 Output, Urinary Catheter 750 Amount Output, Urine Amount 150 Other: Percent Meal Consumed 25% % Weight 62.596 kg Weight Measurement Method Built in [facility] Laboratory Results 06/06/16 06/07/16 06/08/16 Range/Units 15:16 18:09 04:19 WBC 8.72 9.84 (4.8-10.8) 10^3/uL RBC 2.78 L 2.57 L (4.20-5.40) 10^6/uL Hgb 8.3 L 7.7 L (12.0-16.0) g/dL Hct 26.0 L 24.4 L (37.0-47.0) % MCV 93.5 94.9 (81-99) FL MCH 29.9 30.0 (27-31) PG MCHC 31.9 L 31.6 L (33-37) g/dL RDW Std Deviation 56.6 H 56.0 H (39-50) fL RDW Coeff of Nava 17.3 H 17.0 H (11.5-14.5) % Plt Count 133 L 160 (140-350) 10*3/uL MPV 11.2 11.7 (7.4-12.2) FL Sodium 144 (135-145) meq/L Potassium 3.6 L (3.8-5.2) meq/L Chloride 115 H (98-112) meq/L Carbon Dioxide 23 (23-33) meq/L Anion Gap 6 (5-20) BUN 16 (7-22) mg/dL Creatinine 0.7 (0.50-1.20) mg/dL Estimated GFR (>60 ml/min/1.73m(2)) BUN/Creatinine Ratio 22.85 H (6-20) Glucose 96 (78-110) mg/dL Calculated Osmolality 298.0 H (267-292) mOsm/kg Calcium 7.2 L (8.7-10.7) mg/dL Total Bilirubin 0.6 (0.3-1.2) mg/dL AST 30 (8-39) IU/L ALT 27 (9-52) IU/L Alkaline Phosphatase 52 (38-126) IU/L Total Protein 3.8 L (6.1-8.0) g/dL Albumin 1.7 L (3.5-4.8) g/dL Globulin 2.1 L (2.50-4.10) g/dL Albumin/Globulin Ratio 0.80 L (1.3-2.0) mg/g Blood Type O POSITIVE Antibody Screen Negative Crossmatch See Detail Hemovac last PM only put out 18 mL of blood and this morning it looks serous fluid and only put out 2 mL over the last 5 hours drain was pulled Assessment: Left comminuted peritrochanteric hip fracture with supplemental medullary nail Anemia Alzheimer's Plan: Patient appears to be getting a couple units of packed RBCs this morning. We' ll continue to monitor pain control. Have her mobilize with therapy with maximum assist at the current time.
[2016-06-08] MEDS ORDERED: FUROSEMIDE 10 MG/1 ML - 2 ML VIAL ONE (15:19)
[2016-06-08 23:09] LABS: HEMATOCRIT 31.8 % (37.0-47.0); HEMOGLOBIN 10.7 g/dL (12.0-16.0); MEAN CORPUSCULAR HEMOGLOBIN 30.1 PG (27-31); MEAN CORPUSCULAR HGB CONC 33.6 g/dL (33-37); MEAN PLATELET VOLUME 10.7 FL (7.4-12.2); RED BLOOD COUNT 3.55 10^6/uL (4.20-5.40)
[2016-06-09] MEDS: HYDROcodone-APAP 5 MG -325 MG TABLET PO PRN ×4 (04:20→20:11)
[2016-06-09] MEDS: Senna/Docusate Tab 1 TAB TAB PO SCH ×2 (08:59→20:10)
[2016-06-09] MEDS: MORPHINE SULFATE 2 MG/1 ML IVP PRN ×3 (10:42→20:10)
--- NOTE | 2016-06-09 11:29 | OT.PROG ---
Progress Note Progress Note: S: pt was in bed upon arrival. pt had been very agitated about 30 minutes prior to therapy, although nursing gave her moraphine thinking the agitation was from pain. O: pt struggles with understanding what therapy is going to do and struggles with verbalizing how she is feeling what she is wanting. pt did seem to finally agree to complete therapy. pt required mod A x 2 to complete supine to sit EOB transfer. pt was able to sit EOB with CGA only for 8 minutes. pt completed 2 dependent sit to stands for 20 seconds pt then was moved back into the supine position at ed of session with max A x 2. A: pt tolerated therapy better today although was very emotional. pt was able to sit EOB longer with less help today and assisted with the supine to sit transfer. P: we will continue to work with pt to increase strength and functional transfers to return to the [place]
[2016-06-09 11:55] LABS: HEMATOCRIT 34.3 % (37.0-47.0); HEMOGLOBIN 11.5 g/dL (12.0-16.0); MEAN CORPUSCULAR HEMOGLOBIN 30.3 PG (27-31); MEAN CORPUSCULAR HGB CONC 33.5 g/dL (33-37); MEAN PLATELET VOLUME 10.7 FL (7.4-12.2); RED BLOOD COUNT 3.79 10^6/uL (4.20-5.40)
[2016-06-09 12:02] LABS: BUN/CREATININE RATIO 32.85 (6-20); SERUM ALBUMIN 2.2 g/dL (3.5-4.8)
[2016-06-09] MEDS ORDERED: MORPHINE SULFATE 2 MG/1 ML IVP ONE (12:04)
--- NOTE | 2016-06-09 13:30 | PDOC(PROG) ---
Interval History: No change clinically she did tolerate her packed red blood cells well her urine output is improved continues to have severe dementia this is chronic Objective : Data - Labs CBC and BMP: 06/09/16 11:30 06/09/16 11:30 Labs - Last 24 Hours: Laboratory Results 06/06/16 06/08/16 06/09/16 Range/Units 15:16 23:07 11:30 WBC 10.42 9.96 (4.8-10.8) 10^3/uL RBC 3.55 L 3.79 L (4.20-5.40) 10^6/uL Hgb 10.7 L 11.5 L (12.0-16.0) g/dL Hct 31.8 L 34.3 L (37.0-47.0) % MCV 89.6 90.5 (81-99) FL MCH 30.1 30.3 (27-31) PG MCHC 33.6 33.5 (33-37) g/dL RDW Std Deviation 52.8 H 54.5 H (39-50) fL RDW Coeff of Nava 16.8 H 17.0 H (11.5-14.5) % Plt Count 151 167 (140-350) 10*3/uL MPV 10.7 10.7 (7.4-12.2) FL Sodium 143 (135-145) meq/L Potassium 3.9 (3.8-5.2) meq/L Chloride 114 H (98-112) meq/L Carbon Dioxide 24 (23-33) meq/L Anion Gap 5 (5-20) BUN 23 H (7-22) mg/dL Creatinine 0.7 (0.50-1.20) mg/dL Estimated GFR (>60 ml/min/1.73m(2)) BUN/Creatinine Ratio 32.85 H (6-20) Glucose 105 (78-110) mg/dL Calculated Osmolality 299.0 H (267-292) mOsm/kg Calcium 8.0 L (8.7-10.7) mg/dL Total Bilirubin 1.3 H D (0.3-1.2) mg/dL AST 30 (8-39) IU/L ALT 26 (9-52) IU/L Alkaline Phosphatase 62 (38-126) IU/L Total Protein 4.7 L (6.1-8.0) g/dL Albumin 2.2 L (3.5-4.8) g/dL Globulin 2.5 (2.50-4.10) g/dL Albumin/Globulin Ratio 0.80 L (1.3-2.0) mg/g Blood Type O POSITIVE Antibody Screen Negative Crossmatch See Detail Objective : Exam - General General Appearance: Cooperative - Respiratory Respiratory Exam: Clear to Auscultation - Bilaterally, Breathing Non Labored, Normal To Percussion - Cardiovascular Cardiovascular Exam: No Murmur, No Clicks, No Gallops Assessment and Plan - Patient Problems (1) Acute blood loss as cause of postoperative anemia Current Visit: Yes Status: Acute (2) Hip fracture Current Visit: Yes Status: Acute (3) Dementia Current Visit: No Status: Acute (4) Fall Current Visit: No Status: Acute (5) Hip pain Current Visit: No Status: Acute (6) Status post-operative repair of closed fracture of left hip Current Visit: Yes Status: Acute - Assessment / Plan Additional Assessment/Plan Details: Overall patient is a 2 days postop she had poor urine output was transfused a total 4 units of packed red blood cells seems to be stabilized the urine output is improved wound looks good as per orthopedic surgery pain control we have increased her morphine. At present time once the PT OT and Dr. East agreed [facility]
--- NOTE | 2016-06-09 14:01 | ORTHO.PROG ---
Last Taken Vital Signs: Vital Signs - Last Taken Temperature 97.4 F 06/09/16 12:03 Pulse Rate 80 06/09/16 12:03 Respiratory Rate 20 06/09/16 12:03 Blood Pressure 148/88 06/09/16 12:03 Pulse Ox 93 06/09/16 12:03 Subjective: Patient unable to communicate well and seems to mumble inwards do not seem to make sense with discussing she seems to be demonstrative of pain and potential irritation. Objective: Looking at the incisions a appear to be clean and dry there is a moderate amount of swelling up around the thigh and hip region none of the knee. She has general motion of the foot and toes with stimulation. Intake and Output - 8hrs 06/08/16 06/08/16 06/09/16 06/09/16 12:59 20:59 05:59 13:59 Intake: IV Intake Oral Amount 360 Intake, Blood Product Amount Packed Red Bld Cells Unit [id number] Packed Red Bld Cells Unit [id number] Output: Output, Drainage Amount Output, Urinary Catheter Amount Other: Percent Meal Consumed 50% Weight 63.503 kg Weight Measurement Method Built in [facility] Laboratory Results 06/06/16 06/08/16 06/09/16 Range/Units 15:16 23:07 11:30 WBC 10.42 9.96 (4.8-10.8) 10^3/uL RBC 3.55 L 3.79 L (4.20-5.40) 10^6/uL Hgb 10.7 L 11.5 L (12.0-16.0) g/dL Hct 31.8 L 34.3 L (37.0-47.0) % MCV 89.6 90.5 (81-99) FL MCH 30.1 30.3 (27-31) PG MCHC 33.6 33.5 (33-37) g/dL RDW Std Deviation 52.8 H 54.5 H (39-50) fL RDW Coeff of Nava 16.8 H 17.0 H (11.5-14.5) % Plt Count 151 167 (140-350) 10*3/uL MPV 10.7 10.7 (7.4-12.2) FL Sodium 143 (135-145) meq/L Potassium 3.9 (3.8-5.2) meq/L Chloride 114 H (98-112) meq/L Carbon Dioxide 24 (23-33) meq/L Anion Gap 5 (5-20) BUN 23 H (7-22) mg/dL Creatinine 0.7 (0.50-1.20) mg/dL Estimated GFR (>60 ml/min/1.73m(2)) BUN/Creatinine Ratio 32.85 H (6-20) Glucose 105 (78-110) mg/dL Calculated Osmolality 299.0 H (267-292) mOsm/kg Calcium 8.0 L (8.7-10.7) mg/dL Total Bilirubin 1.3 H D (0.3-1.2) mg/dL AST 30 (8-39) IU/L ALT 26 (9-52) IU/L Alkaline Phosphatase 62 (38-126) IU/L Total Protein 4.7 L (6.1-8.0) g/dL Albumin 2.2 L (3.5-4.8) g/dL Globulin 2.5 (2.50-4.10) g/dL Albumin/Globulin Ratio 0.80 L (1.3-2.0) mg/g Blood Type O POSITIVE Antibody Screen Negative Crossmatch See Detail Assessment: Left comminuted subtrochanteric femur fracture with cephalo-medullary nail stabilization Anemia Dementia Plan: At the current time I'm not sure if the patient is just having marked increasing pain we do have her on a relatively low dose of medication but based on her size we thought this was reasonable and we should probably increase morphine dosing and possibly see how that works see if this helps her agitation. This may be more pronounced today because she was quite lethargic from most likely the lower hematocrit and hemoglobin and now that this is back to normal is more demonstrative of her symptoms. We'll follow her closely to see if this helps with her pain medication I would remove the bulky dressing she hasn't put Silverlon dressing I think this will be more difficult to peel off and get off for the patient.
[2016-06-09] MEDS ORDERED: FUROSEMIDE 10 MG/1 ML - 4 ML IVP ONE (15:08)
[2016-06-09] MEDS: NORMAL SALINE 10 ML SYRINGE FLUSH IVP PRN (20:10)
[2016-06-10] MEDS: HYDROcodone-APAP 5 MG -325 MG TABLET PO PRN ×5 (00:21→18:27)
[2016-06-10] MEDS: NORMAL SALINE 10 ML SYRINGE FLUSH IVP PRN ×2 (02:24→18:28)
[2016-06-10] MEDS: MORPHINE SULFATE 2 MG/1 ML IVP PRN ×2 (02:25→18:27)
[2016-06-10 06:27] LABS: BASOPHILS # (AUTO) 0.02 10*3/UL; BASOPHILS % (AUTO) 0.2 % (0-1); EOSINOPHILS % (AUTO) 2.5 % (0-8); HEMOGLOBIN 10.5 g/dL (12.0-16.0); LYMPHOCYTES # (AUTO) 0.93 10*3/uL; MEAN CORPUSCULAR HEMOGLOBIN 30.1 PG (27-31); MEAN CORPUSCULAR HGB CONC 32.8 g/dL (33-37); MEAN PLATELET VOLUME 10.9 FL (7.4-12.2); MONOCYTES # (AUTO) 0.91 10*3/UL (0.3-0.8); MONOCYTES % (AUTO) 11.2 % (5-15); NEUTROPHILS # (AUTO) 5.98 10*3/UL; NEUTROPHILS % (AUTO) 73.7 % (50-80); RED BLOOD COUNT 3.49 10^6/uL (4.20-5.40)
[2016-06-10 06:34] LABS: PLATELET MORPHOLOGY COMMENT NORMAL MORPHOLOGY (NORM); RBC MORPHOLOGY COMMENT NORMAL MORPHOLOGY (NORM); WBC MORPHOLOGY COMMENT NORMAL MORPHOLOGY (NORM)
[2016-06-10 06:48] LABS: BUN/CREATININE RATIO 28.57 (6-20); CALCIUM 7.5 mg/dL (8.7-10.7); SERUM ALBUMIN 1.9 g/dL (3.5-4.8)
[2016-06-10] MEDS: Senna/Docusate Tab 1 TAB TAB PO SCH ×2 (08:29→22:35)
--- NOTE | 2016-06-10 10:32 | OTI REPORT ---
Thank you for the referral of Kennedi Luis. She was seen on 06/07/16 for an occupational therapy inpatient evaluation secondary to a left hip surgery. SUBJECTIVE: The patient is an 89-year-old female. Prior to admission the patient was in the Alzheimer's wing at the [facility]. Very little information is able to be obtained from the patient. She has quite significant cognitive delays. Our goal will be to get the patient back to the [facility] and to participate in as much as she can. PAST MEDICAL HISTORY: Past medical history can be found in the patient's medical record. OBJECTIVE FINDINGS: General observations: The patient was not alert or oriented. She had difficulty answering questions with proper yes and no responses. At times she would try to talk but it did not make sense. OT co-treated with PT because the patient is a max assist transfer per report. Bed mobility: The patient did require max assist x2 to come from supine to sit. The patient was dependent when transferring from sit to supine. Activities of daily living: While sitting, PT worked on the patient's sitting balance while OT worked on simple ADLs including having the patient brush her hair, wash her face, and brush her teeth with hand over hand assistance. We attempted this x10 minutes. The patient needed max assist for all activities. The patient was responsive for slight stimuli with the washcloth on her mouth but most of the time she did not understand what the tools were that were being used for simple hygiene activities. ASSESSMENT: The patient has significant cognitive and physical delays. Some of her delays could possibly be from her medications. The patient would benefit from a couple more sessions of occupational therapy to reassess her cognitive abilities to participate in simple ADLs. We are probably only going to address simple ADLs to see if the patient can participate in these. We will assist with functional transfers and the patient's ability to go back to the Care Center when appropriate and when she is a one person transfer. Short-Term Goals: To be met by discharge from inpatient: Patient will be able to complete a functional stand pivot transfer with max assist. Patient will be able to sit edge of bed and perform simple hygiene activities with mod assist. Patient will be oriented to her name. Long-Term Goals: To be met following discharge from inpatient: Patient will be discharged back to the [facility], being able to complete a functional transfer with mod assist. TREATMENT PLAN: Patient will be seen one time per day during the week and one time per day over the weekend as an inpatient to address the above goals and objectives. INITIAL TREATMENT: Treatment today consisted of the initial evaluation followed by co-treatment with PT for functional transfers, functional activities and hygiene activities while sitting edge of bed and transferring back into bed with max assist x2. MTDD
--- NOTE | 2016-06-10 11:11 | OT.PROG ---
Progress Note Progress Note: S: pt was in bed upon arrival. pt seemed less agitated today although acted like her pain was more under control. O: pt required max A x 2 for supine to sit EOB today, she did nit help today as much as yesterday. pt sat EOB with CGA 5 min. pt than trasnferred to the chair scale, dependent transfer. pt then transferred to the chair dependent. pt did not help with transfer at all. pt was left in the chair with feet up and tabs alarm on, and call light A: pt tolerated therapy. at this time transfers are still dependent and pt did not assist with the bed mobility as much today. P: cont per POC to increase functional transfers
[2016-06-10] MEDS ORDERED: HYDROcodone-APAP 5 MG -325 MG TABLET PO PRN (15:18)
--- NOTE | 2016-06-10 15:19 | PDOC(PROG) ---
Date and Time of Service: 06/10/2016, 1517 Interval History: Mostly moans, cannot obtain history otherwise due to dementia. Objective : Data - Labs CBC and BMP: 06/10/16 06:19 06/10/16 06:19 Labs - Last 24 Hours: Laboratory Results 06/10/16 Range/Units 06:19 WBC 8.11 (4.8-10.8) 10^3/uL RBC 3.49 L (4.20-5.40) 10^6/uL Hgb 10.5 L (12.0-16.0) g/dL Hct 32.0 L (37.0-47.0) % MCV 91.7 (81-99) FL MCH 30.1 (27-31) PG MCHC 32.8 L (33-37) g/dL RDW Std Deviation 53.2 H (39-50) fL RDW Coeff of Nava 16.7 H (11.5-14.5) % Plt Count 148 (140-350) 10*3/uL MPV 10.9 (7.4-12.2) FL Immature Gran % (Auto) 0.9 (0-5) % Neut % (Auto) 73.7 (50-80) % Lymph % (Auto) 11.5 (10-50) % [place] % (Auto) 11.2 (5-15) % Eos % (Auto) 2.5 (0-8) % Baso % (Auto) 0.2 (0-1) % Immature Gran # (Auto) 0.07 10*3/UL Neut # (Auto) 5.98 10*3/UL Lymph # (Auto) 0.93 10*3/uL [place] # (Auto) 0.91 H (0.3-0.8) 10*3/UL Eos # (Auto) 0.20 10*3/UL Baso # (Auto) 0.02 10*3/UL WBC Morphology Comment Normal morphology (NORM) Plt Morphology Comment Normal morphology (NORM) RBC Morph Comment Normal morphology (NORM) Sodium 142 (135-145) meq/L Potassium 3.9 (3.8-5.2) meq/L Chloride 112 (98-112) meq/L Carbon Dioxide 26 (23-33) meq/L Anion Gap 4 L (5-20) BUN 20 (7-22) mg/dL Creatinine 0.7 (0.50-1.20) mg/dL Estimated GFR (>60 ml/min/1.73m(2)) BUN/Creatinine Ratio 28.57 H (6-20) Glucose 77 L (78-110) mg/dL Calculated Osmolality 295.0 H (267-292) mOsm/kg Calcium 7.5 L (8.7-10.7) mg/dL Total Bilirubin 1.4 H (0.3-1.2) mg/dL AST 29 (8-39) IU/L ALT 24 (9-52) IU/L Alkaline Phosphatase 51 (38-126) IU/L Total Protein 4.0 L (6.1-8.0) g/dL Albumin 1.9 L (3.5-4.8) g/dL Globulin 2.1 L (2.50-4.10) g/dL Albumin/Globulin Ratio 0.90 L (1.3-2.0) mg/g Objective : Exam - General General Appearance: No Acute Distress, Cooperative Additional General Exam Details: Vital Signs - Last Taken Temperature 98.0 F 06/10/16 12:33 Pulse Rate 76 06/10/16 12:33 Respiratory Rate 16 06/10/16 12:33 Blood Pressure 142/71 06/10/16 12:33 Pulse Ox 97 06/10/16 12:33 Moans, does not answer questions. - Eye Eye Exam: No Scleral Icterus - Respiratory Respiratory Exam: Clear to Auscultation - Bilaterally, Breathing Non Labored - Cardiovascular Cardiovascular Exam: RRR, No Murmur, No Clicks, No Gallops, No Rubs, JVD - GI/Abdominal GI/Abdominal Exam: Normal Bowel Sounds, Non Tender, Non Distended, Soft - Extremities Extremities Exam: No Clubbing Present, No Edema Present, No Cyanosis Present Additional Extremities Exam Details: Dressing on left hip fracture is clean, dry, intact. - Neurological Neurological Exam: Alert Assessment and Plan - Patient Problems (1) Hip fracture Current Visit: Yes Status: Acute (2) Status post-operative repair of closed fracture of left hip Current Visit: Yes Status: Acute (3) Dementia Current Visit: No Status: Acute Qualifiers: Dementia type: Alzheimer's disease Alzheimer's disease onset: unspecified onset Dementia behavioral disturbance: without behavioral disturbance Qualified Description: Alzheimer's dementia without behavioral disturbance, unspecified timing of dementia onset Qualifier Code(s): ( G30.9) Alzheimer's disease, unspecified, (F02.80) Dementia in other diseases classified elsewhere without behavioral disturbance - Assessment / Plan Additional Assessment/Plan Details: Stop IV fluids at this time. In my discussion with RN, there is some concern about the Santiago catheter being removed to allow the wound to heal. I think when it's closed more and has had a chance to heal, we should try to get the Santiago catheter out as soon as we can to help prevent urinary tract infection. She is incontinent and certainly that could be a potential risk. Either way we take a risk of infection. Check CBC tomorrow. Continue PT and OT. Hopefully back to long-term facility soon.
--- NOTE | 2016-06-10 16:49 | PT.PROG ---
Progress Note Progress Note: S. Due to Patient's aphasia patient is unable to communicate. O. Patient sat at the edge of the chair x 5 minutes then was transferred to the shower chair and was left with nursing. A. Patient was unable to assist with transfer. Dependent transfer to shower chair. Patient could benefit from skilled therapy to attempt to increase strength and mobility. P. Continue POC.
--- NOTE | 2016-06-10 17:38 | ORTHO.PROG ---
Last Taken Vital Signs: Vital Signs - Last Taken Temperature 96.8 F 06/10/16 16:36 Pulse Rate 73 06/10/16 16:36 Respiratory Rate 16 06/10/16 16:36 Blood Pressure 130/67 06/10/16 16:36 Pulse Ox 92 06/10/16 16:36 Subjective: Patient much more comfortable today/less agitated difficulty understanding her response to questions. Objective: Examination the left leg show the proximal incision looks well-healed the lower incision is covered. Patient distal incision looks well healed in the sense that is continuing to heal but is covered at the current time. No evidence of infection. Intake and Output - 8hrs 06/09/16 06/10/16 06/10/16 06/10/16 21:59 05:59 13:59 21:59 Intake: IV 847 870 Intake Oral Amount 440 200 Output: Output, Urinary Catheter 2250 500 500 Amount Other: Percent Meal Consumed 25% bites Weight 60.772 kg 60.772 kg Weight Measurement Method Chair Scale Vital Signs (24 hrs) Temp Pulse Pulse Resp BP Pulse Ox 06/10/16 16:36 96.8 F 73 16 130/67 92 06/10/16 12:33 98.0 F 76 16 142/71 97 06/10/16 08:12 97.0 F 118 H 16 141/78 95 06/10/16 07:03 74 06/10/16 07:02 16 06/10/16 04:44 97.7 F 80 16 141/76 95 06/10/16 00:48 97.3 F 73 16 138/94 93 06/09/16 21:00 97.4 F 78 16 152/81 92 Laboratory Results 06/10/16 Range/Units 06:19 WBC 8.11 (4.8-10.8) 10^3/uL RBC 3.49 L (4.20-5.40) 10^6/uL Hgb 10.5 L (12.0-16.0) g/dL Hct 32.0 L (37.0-47.0) % MCV 91.7 (81-99) FL MCH 30.1 (27-31) PG MCHC 32.8 L (33-37) g/dL RDW Std Deviation 53.2 H (39-50) fL RDW Coeff of Nava 16.7 H (11.5-14.5) % Plt Count 148 (140-350) 10*3/uL MPV 10.9 (7.4-12.2) FL Immature Gran % (Auto) 0.9 (0-5) % Neut % (Auto) 73.7 (50-80) % Lymph % (Auto) 11.5 (10-50) % [place] % (Auto) 11.2 (5-15) % Eos % (Auto) 2.5 (0-8) % Baso % (Auto) 0.2 (0-1) % Immature Gran # (Auto) 0.07 10*3/UL Neut # (Auto) 5.98 10*3/UL Lymph # (Auto) 0.93 10*3/uL [place] # (Auto) 0.91 H (0.3-0.8) 10*3/UL Eos # (Auto) 0.20 10*3/UL Baso # (Auto) 0.02 10*3/UL WBC Morphology Comment Normal morphology (NORM) Plt Morphology Comment Normal morphology (NORM) RBC Morph Comment Normal morphology (NORM) Sodium 142 (135-145) meq/L Potassium 3.9 (3.8-5.2) meq/L Chloride 112 (98-112) meq/L Carbon Dioxide 26 (23-33) meq/L Anion Gap 4 L (5-20) BUN 20 (7-22) mg/dL Creatinine 0.7 (0.50-1.20) mg/dL Estimated GFR (>60 ml/min/1.73m(2)) BUN/Creatinine Ratio 28.57 H (6-20) Glucose 77 L (78-110) mg/dL Calculated Osmolality 295.0 H (267-292) mOsm/kg Calcium 7.5 L (8.7-10.7) mg/dL Total Bilirubin 1.4 H (0.3-1.2) mg/dL AST 29 (8-39) IU/L ALT 24 (9-52) IU/L Alkaline Phosphatase 51 (38-126) IU/L Total Protein 4.0 L (6.1-8.0) g/dL Albumin 1.9 L (3.5-4.8) g/dL Globulin 2.1 L (2.50-4.10) g/dL Albumin/Globulin Ratio 0.90 L (1.3-2.0) mg/g Assessment: Left comminuted subtrochanteric hip fracture with cephalo-medullary nail. Anemiaimproved after blood transfusions Plan: At the current time we discussed coverage of the incisions and wounds to prevent infection. Patient does have issues with urinary incontinence and I would try to avoid having the skin in this area get macerated or having a urine around the incisions. Possibly water proof dressing see if the Santiago is to be discontinued. We will continue with her current care at the current time see her back sooner for any problems.
[2016-06-11] MEDS: HYDROcodone-APAP 5 MG -325 MG TABLET PO PRN ×2 (02:13→08:19)
[2016-06-11] MEDS: Senna/Docusate Tab 1 TAB TAB PO SCH ×2 (08:19→21:32)
[2016-06-11] MEDS ORDERED: FUROSEMIDE 10 MG/1 ML - 4 ML IVP ONE (11:55)
[2016-06-11] MEDS: HYDROcodone/Acetaminophen 7.5/325mg/15ml cup PO PRN ×2 (12:42→19:46)
[2016-06-11] MEDS: NORMAL SALINE 10 ML SYRINGE FLUSH IVP PRN ×2 (12:42→19:46)
--- NOTE | 2016-06-11 15:13 | PTI REPORT ---
Thank you for the referral of Kennedi Luis. She was seen on 06/07/16 for an inpatient evaluation status post left hip fracture. SUBJECTIVE: The patient is an 89-year-old female who is currently a resident at the [facility]. The patient does have advanced Alzheimer's Disease and currently resides in the [facility]. Per discussion with staff the patient was previously in a wheelchair and was unable to ambulate prior to her hip fracture. The patient does also have difficulty with cognition due to advanced stages of her disease. The patient had a fall out of her wheelchair which led to her left hip fracture. The patient is status post surgical repair and we have received orders to start physical therapy. PAST MEDICAL HISTORY: Past medical history can be found in the patient's medical record. OBJECTIVE FINDINGS: General observations: The patient is awake upon PT arrival. The patient is unable to communicate name or date or where she is at. The patient is easily confused. The patient was laying in bed with an IV in her right and left arm on one liter of oxygen, a catheter in place, and a hemovac on the left. Bed mobility: The patient required max assist x2 to move from a supine to seated position. Even with verbal cueing, the patient was not able to actively assist with the transfer or did not appear to understand directions. The patient required max assist of two in order to move from a seated to supine position and max assist with bed mobility. Balance: Once in a seated position the patient required max assist x1 to maintain seated edge of bed balance as the patient had a tendency to want to fall to the right and posteriorly. In a seated position we attempted to instruct the patient to lift the right lower extremity and wiggle the toes. She was unable to follow commands in order to be able to do this. The patient did remain sitting with max support for approximately 10 minutes. ASSESSMENT: The patient has a poor prognosis due to previous function even before her hip fracture and her cognition. Problem List: Patient is max assist x2 with transfers and with seated balance Physical Therapy Goals: To be met by discharge from inpatient: Patient will transfer from supine to seated and seated to supine with mod assist x1. Patient will be able to sit up in chair without loss of balance x10 minutes. Patient will be able to perform stand pivot transfer with mod assist of two. TREATMENT PLAN: Patient will be seen B.I.D during the week and one time per day over the weekend as an inpatient for transfers and seated balance in anticipation for patient to return to [facility]. INITIAL TREATMENT: Treatment today consisted of the initial evaluation activities only. DANIELLE
--- NOTE | 2016-06-11 15:31 | PDOC(PROG) ---
Date and Time of Service: 06/11/2016, 1529 Interval History: Demented, speech is more clear but still a lot of mumbling. RN reports some drainage from the wound, describes it as serous. She states that the patient has a lot of edema in her leg. Objective : Data - Labs CBC and BMP: 06/10/16 06:19 06/10/16 06:19 Labs - Last 24 Hours: Laboratory Results 06/06/16 Range/Units 15:16 Blood Type O POSITIVE Antibody Screen Negative Crossmatch See Detail Objective : Exam - General General Appearance: No Acute Distress, Cooperative Additional General Exam Details: Vital Signs - Last Taken Temperature 98.2 F 06/11/16 11:26 Pulse Rate 89 06/11/16 11:26 Respiratory Rate 21 06/11/16 11:26 Blood Pressure 139/85 06/11/16 11:26 Pulse Ox 92 06/11/16 11:26 - Eye Eye Exam: No Scleral Icterus - Respiratory Respiratory Exam: Clear to Auscultation - Bilaterally, Breathing Non Labored - Cardiovascular Cardiovascular Exam: RRR, No Clicks, No Gallops, No Rubs, Systolic Murmur - GI/Abdominal GI/Abdominal Exam: Normal Bowel Sounds, Non Tender, Non Distended, Soft - Extremities Extremities Exam: No Clubbing Present, No Cyanosis Present, +3 Edema (In left lower extremity, more pronounced on the thigh but present in the calf as well.) Additional Extremities Exam Details: Incision has gertrudis in place and it appears intact. There is some serous drainage at the superior aspect of the incision. - Neurological Neurological Exam: Alert, No Facial Droop Assessment and Plan - Patient Problems (1) Stasis edema of left lower extremity Current Visit: Yes Status: Acute (2) Anemia Current Visit: Yes Status: Acute (3) Hip fracture Current Visit: Yes Status: Acute (4) Status post-operative repair of closed fracture of left hip Current Visit: Yes Status: Acute (5) Dementia Current Visit: No Status: Acute Qualifiers: Dementia type: Alzheimer's disease Alzheimer's disease onset: unspecified onset Dementia behavioral disturbance: without behavioral disturbance Qualified Description: Alzheimer's dementia without behavioral disturbance, unspecified timing of dementia onset Qualifier Code(s): ( G30.9) Alzheimer's disease, unspecified, (F02.80) Dementia in other diseases classified elsewhere without behavioral disturbance - Assessment / Plan Additional Assessment/Plan Details: At this point, I'll try Lasix to see if he can get rid of some of the edema to help with the wound. In addition order ESTUARDO hose for the left lower extremity. The wound is too high risk to have the patient discharged at this time and it continues to need monitoring inpatient. Continue Santiago catheter. RN reports that the patient is having a lot of trouble with crushed medications but seems to drink liquids and fluids okay so we will change her pain medication to Lortab elixir for now. Check labs tomorrow.
--- NOTE | 2016-06-11 16:26 | PT.PROG ---
Progress Note Progress Note: S. Due to Patient's aphasia patient is unable to communicate. O. Patient sat at the edge of the chair x 5 minutes then was transferred to the bed where she was left with call light and alarm. A. Patient was unable to assist with transfer. Dependent transfer to the bed. Attempted range of motion exercises however patient was unable to stay awake long enough to participate. Patient could benefit from skilled therapy to attempt to increase strength and mobility. P. Continue POC.
--- NOTE | 2016-06-11 16:28 | OT AM DAY ---
Diagnosis : Left Hip Fracture AM - Occupational Therapy S: The patient's nurse stated the patient had just received her pain medication. She ate minimal for breakfast. O: Today the patient transferred from supine to sit with max assist x2. Today she had improved abilities while sitting edge of bed and was able to sit x5 minutes with contact guard assist. We then worked on a functional transfer which included a one person max assist transfer. She started to bear weight just a little bit throughout her lower extremity and transferred to the chair. While sitting in chair we encouraged her to sit on the edge of the chair x10 minutes while we did hand over hand assist for hygiene activities including washing her face and brushing her teeth. She needed max assist for both activities; however, today she started to participate with these activities. The patient did make a few intelligible statements; when asked if she wanted water she did say "yes" and drank water. She made a few other statements today that were somewhat related to the conversation. She does demonstrate confusion still. She needed max assist to scoot to the back of her chair. She was placed in her chair with pillows under her elbows and underneath her knees with call light within reach. A: The patient did make a few intelligible statements today; when asked if she wanted water she did say "yes" and drank water. She made a few other statements today that were somewhat related to the conversation. She does demonstrate confusion still. P: Continue seeing patient one time per day during the week and one time per day over the weekend until discharge. DANIELLE
[2016-06-11] MEDS: MORPHINE SULFATE 2 MG/1 ML IVP PRN (19:46)
[2016-06-12] MEDS: HYDROcodone/Acetaminophen 7.5/325mg/15ml cup PO PRN ×5 (01:27→23:04)
[2016-06-12] MEDS: MORPHINE SULFATE 2 MG/1 ML IVP PRN ×2 (05:07→21:38)
[2016-06-12] MEDS: NORMAL SALINE 10 ML SYRINGE FLUSH IVP PRN ×3 (05:08→21:39)
[2016-06-12 06:21] LABS: HEMATOCRIT 32.5 % (37.0-47.0); HEMOGLOBIN 10.2 g/dL (12.0-16.0); MEAN CORPUSCULAR HEMOGLOBIN 29.1 PG (27-31); MEAN CORPUSCULAR HGB CONC 31.4 g/dL (33-37); MEAN PLATELET VOLUME 10.7 FL (7.4-12.2); RED BLOOD COUNT 3.51 10^6/uL (4.20-5.40)
[2016-06-12 06:32] LABS: BUN/CREATININE RATIO 33.33 (6-20); CALCIUM 7.6 mg/dL (8.7-10.7)
[2016-06-12] MEDS: Senna/Docusate Tab 1 TAB TAB PO SCH ×2 (09:06→23:04)
[2016-06-12] MEDS ORDERED: Potassium Chloride 20 mEq 20 MEQ in Premix 1 BAG IV ONE ×5 (11:20→23:00)
--- NOTE | 2016-06-12 13:05 | PDOC(PROG) ---
Date and Time of Service: 06/12/2016, 1305 Interval History: This much brighter today, has less of an expression of pain in her face, history is very limited by dementia. She does say "hello". Objective : Data - Labs CBC and BMP: 06/12/16 05:41 06/12/16 05:41 Labs - Last 24 Hours: Laboratory Results 06/12/16 Range/Units 05:41 WBC 7.53 (4.8-10.8) 10^3/uL RBC 3.51 L (4.20-5.40) 10^6/uL Hgb 10.2 L (12.0-16.0) g/dL Hct 32.5 L (37.0-47.0) % MCV 92.6 (81-99) FL MCH 29.1 (27-31) PG MCHC 31.4 L (33-37) g/dL RDW Std Deviation 51.2 H (39-50) fL RDW Coeff of Nava 15.8 H (11.5-14.5) % Plt Count 194 (140-350) 10*3/uL MPV 10.7 (7.4-12.2) FL Sodium 140 (135-145) meq/L Potassium 2.9 L (3.8-5.2) meq/L Chloride 108 (98-112) meq/L Carbon Dioxide 28 (23-33) meq/L Anion Gap 4 L (5-20) BUN 20 (7-22) mg/dL Creatinine 0.6 (0.50-1.20) mg/dL Estimated GFR (>60 ml/min/1.73m(2)) BUN/Creatinine Ratio 33.33 H (6-20) Glucose 95 (78-110) mg/dL Calculated Osmolality 292.0 (267-292) mOsm/kg Calcium 7.6 L (8.7-10.7) mg/dL Objective : Exam - General General Appearance: No Acute Distress, Cooperative Additional General Exam Details: Vital Signs - Last Taken Temperature 97 F 06/12/16 12:12 Pulse Rate 69 06/12/16 12:12 Respiratory Rate 20 06/12/16 12:12 Blood Pressure 117/59 06/12/16 12:12 Pulse Ox 93 06/12/16 12:12 - Eye Eye Exam: No Scleral Icterus - Respiratory Respiratory Exam: Clear to Auscultation - Bilaterally, Breathing Non Labored - Cardiovascular Cardiovascular Exam: RRR, No Clicks, No Gallops, No Rubs, Systolic Murmur - GI/Abdominal GI/Abdominal Exam: Normal Bowel Sounds, Non Tender, Non Distended, Soft - Extremities Extremities Exam: No Clubbing Present, No Cyanosis Present Additional Extremities Exam Details: Edema is much better in the left lower extremity. Significantly less drainage at the Hemovac insertion site. - Neurological Neurological Exam: Alert, No Facial Droop Assessment and Plan - Patient Problems (1) Stasis edema of left lower extremity Current Visit: Yes Status: Acute Comment: Improved, potassium was quite low so we'll replace that. Hold off on Lasix today. I think it's improved enough that we can probably pull the catheter and see how the patient does. If she does well then could consider discharge tomorrow back to alf facility. (2) Anemia Current Visit: Yes Status: Acute Qualifiers: Anemia type: unspecified type Qualified Description: Anemia, unspecified type Qualifier Code(s): (D64.9) Anemia, unspecified (3) Hip fracture Current Visit: Yes Status: Acute Comment: Status post ORIF Qualifiers: Encounter type: initial encounter Fracture type: closed Laterality : left Qualified Description: Fracture of hip, left, closed, initial encounter Qualifier Code(s): (S72.002A) Fracture of unspecified part of neck of left femur, initial encounter for closed fracture (4) Status post-operative repair of closed fracture of left hip Current Visit: Yes Status: Acute (5) Dementia Current Visit: No Status: Acute Qualifiers: Dementia type: Alzheimer's disease Alzheimer's disease onset: unspecified onset Dementia behavioral disturbance: without behavioral disturbance Qualified Description: Alzheimer's dementia without behavioral disturbance, unspecified timing of dementia onset Qualifier Code(s): ( G30.9) Alzheimer's disease, unspecified, (F02.80) Dementia in other diseases classified elsewhere without behavioral disturbance - Assessment / Plan Additional Assessment/Plan Details: thus far, wound has no sign of infection. It is been quite concerning with increased serous drainage, and so we've kept the catheter and to help prevent any urine buildup on the wound, but the serous drainage has significantly slowed down with Lasix decompression of the edema and the left lower extremity and so I think at this point we can take the catheter out, and if well tolerated and the patient does well with this we could potentially send her back to the alf facility tomorrow. I may have therapy monitor the wound carefully at the facility on an every day to every other day basis for the next couple of weeks. Replace potassium today. The patient had significantly less grimace on exam today. I think the Lortab elixir is definitely helping for pain control.
--- NOTE | 2016-06-12 16:18 | PT.PROG ---
Progress Note Progress Note: S. Due to patient's aphasia Patient was unable to communicate with us. O. Patient was dependently transferred from the chair to the bed were bandage was changed with assistance from nursing. Patient was left with call light and alarm. A. Patient required max assist with transfer to bed, she did assist very minimally however continues to require dependant transfer. Patient would continue to benefit from skilled therapy to attempt to increase mobility and independence. P. Continue POC.
--- NOTE | 2016-06-12 16:51 | ORTHO.PROG ---
Last Taken Vital Signs: Vital Signs - Last Taken Temperature 98 F 06/12/16 16:10 Pulse Rate 87 06/12/16 16:10 Respiratory Rate 20 06/12/16 16:10 Blood Pressure 133/64 06/12/16 16:10 Pulse Ox 91 06/12/16 16:10 Subjective: Patient is noncommunicative Objective: Patient's leg swelling has gone down considerably the tense edema has decreased considerably after Lasix given yesterday and her urine output was rather significant tear. She has no drainage or weeping from the proximal or distal incision but still has some serous he fluid that is egressed from the drain site. There is no surrounding erythema. This is serous he fluid. Patient has a normal white count and no fever. Vital Signs (24 hrs) Temp Pulse Pulse Resp BP Pulse Ox 06/12/16 16:10 98 F 87 20 133/64 91 06/12/16 12:12 97 F 69 20 117/59 93 06/12/16 07:26 97 F 67 18 115/59 93 06/12/16 07:08 72 18 06/12/16 05:00 98.1 F 77 18 108/64 97 06/12/16 01:00 97.1 F 80 20 134/73 97 06/11/16 20:37 98.8 F 100 18 144/81 93 06/11/16 19:00 100 100 Intake and Output - 8hrs 06/11/16 06/12/16 06/12/16 06/12/16 21:59 05:59 13:59 21:59 Intake: IV 150 Intake Oral Amount 60 240 200 Output: Output, Urinary Catheter 1350 350 175 Amount Other: Percent Meal Consumed magic cup Bites Weight 61.507 kg 60.328 kg Weight Measurement Method Built in [facility] Laboratory Results 06/12/16 Range/Units 05:41 WBC 7.53 (4.8-10.8) 10^3/uL RBC 3.51 L (4.20-5.40) 10^6/uL Hgb 10.2 L (12.0-16.0) g/dL Hct 32.5 L (37.0-47.0) % MCV 92.6 (81-99) FL MCH 29.1 (27-31) PG MCHC 31.4 L (33-37) g/dL RDW Std Deviation 51.2 H (39-50) fL RDW Coeff of Nava 15.8 H (11.5-14.5) % Plt Count 194 (140-350) 10*3/uL MPV 10.7 (7.4-12.2) FL Sodium 140 (135-145) meq/L Potassium 2.9 L (3.8-5.2) meq/L Chloride 108 (98-112) meq/L Carbon Dioxide 28 (23-33) meq/L Anion Gap 4 L (5-20) BUN 20 (7-22) mg/dL Creatinine 0.6 (0.50-1.20) mg/dL Estimated GFR (>60 ml/min/1.73m(2)) BUN/Creatinine Ratio 33.33 H (6-20) Glucose 95 (78-110) mg/dL Calculated Osmolality 292.0 (267-292) mOsm/kg Calcium 7.6 L (8.7-10.7) mg/dL Assessment: Left leg cephalo-medullary nail after very significant comminuted subtrochanteric femur fracture on left Plan: Continue with dressing changes on leg she has had less serous he drainage from a previously as her swelling has gone down. Continue with physical therapy and occupational therapy as tolerated. We'll follow her closely at the current time.
[2016-06-12 17:17] LABS: BUN/CREATININE RATIO 33.33 (6-20); CALCIUM 7.7 mg/dL (8.7-10.7); MAGNESIUM 1.8 mg/dL (1.6-2.4)
[2016-06-12] MEDS ORDERED: Magnesium Sulfate 4gm (Premix) 4 GM in Premix 1 BAG IV ONE (20:41)
[2016-06-13] MEDS: HYDROcodone/Acetaminophen 7.5/325mg/15ml cup PO PRN ×5 (03:00→21:52)
[2016-06-13 07:01] LABS: CALCIUM 7.6 mg/dL (8.7-10.7); MAGNESIUM 2.7 mg/dL (1.6-2.4)
[2016-06-13] MEDS: Senna/Docusate Tab 1 TAB TAB PO SCH ×3 (08:18→22:58)
--- NOTE | 2016-06-13 11:34 | PT.PROG ---
Progress Note Progress Note: S. Due to Patient's aphasia patient is unable to communicate. O. Patient sat at the edge of the bed x 3 minutes then was transferred to the chair where she performed ROM exercises, she was left with call light and alarm. A. Patient was able to help minimally with transfer however it the transfer was mostly dependent. Patient was able to perform range of motion exercises with mod to max assist. Patient could benefit from skilled therapy to attempt to increase strength and mobility. P. Continue POC.
[2016-06-13] MEDS ORDERED: Potassium Chloride 20mEq Packet PO SCH (11:45)
[2016-06-13] MEDS ORDERED: FUROSEMIDE 10 MG/1 ML - 4 ML IVP ONE (12:00)
--- NOTE | 2016-06-13 13:36 | PDOC(PROG) ---
Date and Time of Service: 06/13/2016, 1335 Interval History: Bones, cannot provide history due to her dementia. RN reports are spent some increased serous drainage on the lower edge of the wound and the 4 x 4's better overall right now look saturated. There is more edema in the left lower extremity. Objective : Data - Labs CBC and BMP: 06/12/16 05:41 06/13/16 05:30 Labs - Last 24 Hours: Laboratory Results 06/12/16 06/13/16 Range/Units 17:02 05:30 Sodium 140 140 (135-145) meq/L Potassium 3.4 L 3.9 (3.8-5.2) meq/L Chloride 107 108 (98-112) meq/L Carbon Dioxide 27 28 (23-33) meq/L Anion Gap 6 4 L (5-20) BUN 20 18 (7-22) mg/dL Creatinine 0.6 0.5 (0.50-1.20) mg/dL Estimated GFR (>60 ml/min/1.73m(2)) BUN/Creatinine Ratio 33.33 H 36.00 H (6-20) Glucose 103 89 (78-110) mg/dL Calculated Osmolality 292.0 290.0 (267-292) mOsm/kg Calcium 7.7 L 7.6 L (8.7-10.7) mg/dL Magnesium 1.8 2.7 H (1.6-2.4) mg/dL Objective : Exam - General General Appearance: No Acute Distress, Cooperative Additional General Exam Details: Vital Signs - Last Taken Temperature 97.5 F 06/13/16 12:30 Pulse Rate 99 06/13/16 12:30 Respiratory Rate 18 06/13/16 12:30 Blood Pressure 136/75 06/13/16 12:30 Pulse Ox 95 06/13/16 12:30 - Eye Eye Exam: No Scleral Icterus - ENT ENT Exam: Mucous Membranes Moist - Respiratory Respiratory Exam: Clear to Auscultation - Bilaterally, Breathing Non Labored - Cardiovascular Cardiovascular Exam: RRR, No Murmur, No Clicks, No Gallops, No Rubs, No JVD - GI/Abdominal GI/Abdominal Exam: Normal Bowel Sounds, Non Tender, Non Distended, Soft - Extremities Extremities Exam: No Clubbing Present, No Cyanosis Present, +1 Edema (Edema in the left lower extremity. Slightly more pronounced today than it was yesterday. No erythema, and although 4 x 4's are saturated, the top dressing appears dry.) - Neurological Neurological Exam: Alert Assessment and Plan - Patient Problems (1) Stasis edema of left lower extremity Current Visit: Yes Status: Acute (2) Anemia Current Visit: Yes Status: Acute Qualifiers: Anemia type: unspecified type Qualified Description: Anemia, unspecified type Qualifier Code(s): (D64.9) Anemia, unspecified (3) Hip fracture Current Visit: Yes Status: Acute Qualifiers: Encounter type: initial encounter Fracture type: closed Laterality : left Qualified Description: Fracture of hip, left, closed, initial encounter Qualifier Code(s): (S72.002A) Fracture of unspecified part of neck of left femur, initial encounter for closed fracture (4) Status post-operative repair of closed fracture of left hip Current Visit: Yes Status: Acute (5) Dementia Current Visit: No Status: Acute Qualifiers: Dementia type: Alzheimer's disease Alzheimer's disease onset: unspecified onset Dementia behavioral disturbance: without behavioral disturbance Qualified Description: Alzheimer's dementia without behavioral disturbance, unspecified timing of dementia onset Qualifier Code(s): ( G30.9) Alzheimer's disease, unspecified, (F02.80) Dementia in other diseases classified elsewhere without behavioral disturbance - Assessment / Plan Additional Assessment/Plan Details: Given the continued serous drainage of this wound, I think it would be best to try to decompress some of the edema with some Lasix again and keep the patient here for continued wound care, monitoring. I don't think this is something that can be managed carefully at the senior living due to the multiple episodes of examination of the wound necessary and dressing changes that are occurring right now. It may be that she'll have to stay here through Friday so that we can continue to monitor this wound carefully.
[2016-06-13] MEDS: Potassium Chloride 20mEq Packet PO SCH ×2 (21:52→22:58)
[2016-06-14] MEDS: HYDROcodone/Acetaminophen 7.5/325mg/15ml cup PO PRN ×3 (01:48→08:49)
[2016-06-14] MEDS ORDERED: HYDROcodone/Acetaminophen 7.5/325mg/15ml cup PO ONE (04:29)
[2016-06-14 06:03] LABS: CALCIUM 7.7 mg/dL (8.7-10.7)
[2016-06-14 07:56] VITALS: RESP 18; TEMP 98
--- NOTE | 2016-06-14 08:21 | ORTHO.PROG ---
Last Taken Vital Signs: Vital Signs - Last Taken Temperature 98 F 06/14/16 07:55 Pulse Rate 77 06/14/16 07:55 Respiratory Rate 18 06/14/16 07:55 Blood Pressure 138/83 06/14/16 07:55 Pulse Ox 96 06/14/16 07:55 Subjective: Patient seems to be a little bit more alert today and has appropriate partial one-word answers 2, answered her questions. Objective: Examination of the leg removing of the dressing show that the incision proximally is clean and dry with gertrudis a fine there is no evidence of drainage in the region there was a lot of shininess but the skin is becoming markedly more soft and back to normal and less swelling despite still having some mild to moderate swelling this goes down on a daily basis the distal gertrudis are fine the hole where the drain was dressing was placed last PM and there is some drainage on this but it is markedly decreased from where we were 2 days ago. Previously this would have collected this much fluid in a matter of 5-10 minutes and now this was over an 8 hour or more period. Intake and Output - 8hrs 06/13/16 06/13/16 06/14/16 06/14/16 13:59 21:59 05:59 13:59 Intake: Intake Oral Amount 320 25 200 Other: Percent Meal Consumed 3 bites of mashed potatos 3 bites. Number of Voids 1 1 1 Weight 58.7 kg Weight Measurement Method Chair Scale Laboratory Results 06/14/16 Range/Units 05:34 Sodium 139 (135-145) meq/L Potassium 3.5 L (3.8-5.2) meq/L Chloride 107 (98-112) meq/L Carbon Dioxide 28 (23-33) meq/L Anion Gap 4 L (5-20) BUN 17 (7-22) mg/dL Creatinine 0.5 (0.50-1.20) mg/dL Estimated GFR (>60 ml/min/1.73m(2)) BUN/Creatinine Ratio 34.00 H (6-20) Glucose 101 (78-110) mg/dL Calculated Osmolality 289.0 (267-292) mOsm/kg Calcium 7.7 L (8.7-10.7) mg/dL Vital Signs (24 hrs) Temp Pulse Resp BP Pulse Ox 06/14/16 07:55 98 F 77 18 138/83 96 06/14/16 05:41 95 06/14/16 04:47 97.6 F 91 16 150/85 95 06/13/16 23:51 97.5 F 97 16 100/86 90 06/13/16 21:00 98.4 F 89 16 151/86 95 06/13/16 16:40 98.1 F 82 16 112/69 95 06/13/16 12:30 97.5 F 99 18 136/75 95 Assessment: Patient with a left comminuted femoral neck and subtrochanteric hip fracture who underwent a cephalo-medullary nail, long nail with proximal and distal interlocking. Plan: We discussed the patient's current condition and clinical findings as it pertains to the current situation. Surgical versus nonsurgical options risks and benefits were discussed and reviewed. Options moving forward include but are not limited to continued choice to live with their current condition; evaluate their current condition further with imaging studies and/or diagnostic testing, etc.; treat problem/problems with surgical versus nonsurgical methods. The patient demonstrates a clear understanding of our discussion. All questions were answered. It seems the wound is doing extremely well the small drain hole which had the 16th inch drain is still having a little drainage but markedly less than what it was previously. At this point hopefully this will dissipate to no drainage. I think overall she is progressing well and we'll continue to follow this. We are 8 days out from surgery and hopefully we can remove her gertrudis on Friday prior to her [facility] to the [facility] if everything continues to progress well.
[2016-06-14] MEDS: Potassium Chloride 20mEq Packet PO SCH (09:47)
[2016-06-14] MEDS: Senna/Docusate Tab 1 TAB TAB PO SCH (09:47)
--- NOTE | 2016-06-14 10:32 | DCSUMMARY ---
Hospitalization Summary Admit Date: 06/06/16 Discharge Date: 06/14/16 Primary Diagnosis:: left hip fracture status post ORIF Hospital Course: This is a very pleasant but very demented 89-year-old female who resides at [facility]. She had some sort of fall in which she developed a left hip fracture and she was admitted for further evaluation and management. She had an open reduction internal fixation performed by Dr. East, see his notes for procedure details. The patient's biggest issue postrecovery was serous drainage from the wound. We were able to decompress that with some Lasix which helped that serous drainage. The patient has not had much in terms of by mouth intake. She has been refusing medications much more frequently now. I spoke with the patient's power of humanities instructor, her [id number], Anaya, and she stated that she felt that the patient should be on comfort care measures in terms of just managing pain and not doing any treatment for any further problems. She stated that she was even a little leery about proceeding with a hip fracture surgery but in the interest of comfort for the patient and pain control for the patient she felt that that would be appropriate. She does not want the patient to be on any blood thinners. She is okay with the patient being on Lortab for pain control. Given the constellation of issues here, we will have physical therapy continue to follow the wound along with nursing, and have the gertrudis removed on June 21. The patient cannot voice any complaints with her dementia. Assessment and Plan: 1. As per discharge assessments noted 2. Disposition: Patient is discharged back to [facility] 3. Condition on discharge, stable and improved. 4. Diet: regular diet 5. Activities: As per physical therapy 6. Follow-Up: 1. Primary care provider can see her per their visits. 2. 7. Medications at the Time of Discharge: Home Medications Medication Instructions Recorded Confirmed Type Acetaminophen [Tylenol] 1 tab PO Q4H PRN tab 04/10/16 06/06/16 History Polyethylene Glycol 3350 [Miralax] 17 gm PO DAILY PRN packet 04/10/16 06/06/16 History Bisacodyl Supp [Bisac-Evac Supp] 10 mg RECTAL ONCE PRN #30 supp 06/14/16 Rx HYDROcodone/APAP 7.5/325 Soln 15 ml PO Q4H PRN #120 cup 06/14/16 Rx [Lortab 7.5 mg/325 mg Soln] 8. Time, care, counseling and coordination of care for this discharge is less than 30 minutes. Exam - Vitals Vital Signs: Vital Signs Temperature 98 F Temperature Source Temporal Artery Scan Pulse Rate [Apical] 72 Pulse Rate [Pulse Oximeter] 77 Pulse Rate 72 Respiratory Rate 18 Blood Pressure [Left Arm] 138/83 Blood Pressure [Right Arm] 161/90 Blood Pressure 152/83 Pulse Ox 96 Oxygen Flow Rate 1 Oxygen Flow Rate 5 Oxygen Delivery Method Room Air Height 5 ft 7 in Weight 129 lb 6.581 oz - General General Appearance: POSITIVE: No Acute Distress, Cooperative - Eye Eye Exam: POSITIVE: No Scleral Icterus - Respiratory Respiratory Exam: POSITIVE: Clear to Auscultation - Bilaterally, Breathing Non Labored - Cardiovascular Cardiovascular Exam: POSITIVE: RRR, No Murmur, No Clicks, No Gallops, No Rubs, No JVD - GI/Abdominal GI/Abdominal Exam: POSITIVE: Normal Bowel Sounds, Non Tender, Non Distended, Soft - Extremities Extremities Exam: POSITIVE: No Clubbing Present, No Edema Present, No Cyanosis Present Additional Extremities Exam Details: Less edema in the left lower extremity and serous drainage has improved. - Neurological Neurological Exam: POSITIVE: Alert Data Perinent Studies: Laboratory Results 06/06/16 06/06/16 06/06/16 Range/Units 11:30 13:59 15:16 WBC 5.64 (4.8-10.8) 10^3/uL RBC 3.97 L (4.20-5.40) 10^6/uL Hgb 12.2 (12.0-16.0) g/dL Hct 38.9 (37.0-47.0) % MCV 98.0 (81-99) FL MCH 30.7 (27-31) PG MCHC 31.4 L (33-37) g/dL RDW Std Deviation 47.6 (39-50) fL RDW Coeff of Nava 13.6 (11.5-14.5) % Plt Count 225 (140-350) 10*3/uL MPV 10.7 (7.4-12.2) FL Immature Gran % (Auto) 1.6 (0-5) % Neut % (Auto) 66.8 (50-80) % Lymph % (Auto) 21.5 (10-50) % Hickman % (Auto) 9.2 (5-15) % Eos % (Auto) 0.5 (0-8) % Baso % (Auto) 0.4 (0-1) % Immature Gran # (Auto) 0.09 10*3/UL Neut # (Auto) 3.77 10*3/UL Lymph # (Auto) 1.21 10*3/uL Hickman # (Auto) 0.52 (0.3-0.8) 10*3/UL Eos # (Auto) 0.03 10*3/UL Baso # (Auto) 0.02 10*3/UL WBC Morphology Comment Normal morphology (NORM) Plt Morphology Comment Normal morphology (NORM) RBC Morph Comment Normal morphology (NORM) PT 10.7 (9.7-11.4) secs INR 1.08 (0.00-5.90) N/A Sodium 140 (135-145) meq/L Potassium 3.7 L (3.8-5.2) meq/L Chloride 105 (98-112) meq/L Carbon Dioxide 28 (23-33) meq/L Anion Gap 7 (5-20) BUN 21 (7-22) mg/dL Creatinine 0.6 (0.50-1.20) mg/dL Estimated GFR (>60 ml/min/1.73m(2)) BUN/Creatinine Ratio 35.00 H (6-20) Glucose 96 (78-110) mg/dL Calculated Osmolality 292.0 (267-292) mOsm/kg Calcium 8.5 L (8.7-10.7) mg/dL Magnesium 2.1 (1.6-2.4) mg/dL Total Bilirubin 0.5 (0.3-1.2) mg/dL AST 29 (8-39) IU/L ALT 39 (9-52) IU/L Alkaline Phosphatase 104 (38-126) IU/L Total Protein 6.2 (6.1-8.0) g/dL Albumin 3.3 L (3.5-4.8) g/dL Globulin 2.9 (2.50-4.10) g/dL Albumin/Globulin Ratio 1.10 L (1.3-2.0) mg/g Ur Collection Type cath Urine Color Yellow Urine Clarity Clear (CLEAR) Urine pH 7.0 (5.0-8.5) Ur Specific [place] 1.015 (1.005-1.030) Urine Protein Negative (NEG) mg/dl Urine Glucose (UA) Negative (NEG) mg/dL Urine Ketones Trace (NEG) Urine Occult Blood Negative (NEG) Urine Nitrate Negative (NEG) Urine Bilirubin Negative (NEG) Urine Urobilinogen 2.0 (0.2) mg/dL Ur Leukocyte Esterase Negative (NEG) Urine RBC 0-3 (NONE) /hpf Urine WBC None (NONE) Ur Squamous Epith Cells None (NONE) Ur Renal Epithelial Cell None (NONE) Urine Crystals Few Urine Bacteria None (NONE) Urine Casts None Urine Mucus Few (NONE) Urine Trichomonas None (NONE) Urine Yeast None (NONE) Blood Type O POSITIVE Antibody Screen Negative Crossmatch See Detail 06/06/16 06/07/16 06/07/16 Range/Units 20:27 05:44 18:09 WBC 8.27 8.72 (4.8-10.8) 10^3/uL RBC 2.30 L 2.78 L (4.20-5.40) 10^6/uL Hgb 6.9 L* 7.3 L 8.3 L (12.0-16.0) g/dL Hct 22.3 L 22.2 L 26.0 L (37.0-47.0) % MCV 96.5 93.5 (81-99) FL MCH 31.7 H 29.9 (27-31) PG MCHC 32.9 L 31.9 L (33-37) g/dL RDW Std Deviation 52.2 H 56.6 H (39-50) fL RDW Coeff of Nava 15.8 H 17.3 H (11.5-14.5) % Plt Count 152 133 L (140-350) 10*3/uL MPV 11.3 11.2 (7.4-12.2) FL Immature Gran % (Auto) 0.5 (0-5) % Neut % (Auto) 85.8 H (50-80) % Lymph % (Auto) 6.8 L (10-50) % Hickman % (Auto) 6.7 (5-15) % Eos % (Auto) 0 (0-8) % Baso % (Auto) 0.2 (0-1) % Immature Gran # (Auto) 0.04 10*3/UL Neut # (Auto) 7.10 10*3/UL Lymph # (Auto) 0.56 10*3/uL Hickman # (Auto) 0.55 (0.3-0.8) 10*3/UL Eos # (Auto) 0 10*3/UL Baso # (Auto) 0.02 10*3/UL WBC Morphology Comment Normal morphology (NORM) Plt Morphology Comment Normal morphology (NORM) RBC Morph Comment Normal morphology (NORM) PT (9.7-11.4) secs INR (0.00-5.90) N/A Sodium 140 (135-145) meq/L Potassium 3.6 L (3.8-5.2) meq/L Chloride 112 (98-112) meq/L Carbon Dioxide 25 (23-33) meq/L Anion Gap 3 L (5-20) BUN 16 (7-22) mg/dL Creatinine 0.6 (0.50-1.20) mg/dL Estimated GFR (>60 ml/min/1.73m(2)) BUN/Creatinine Ratio 26.66 H (6-20) Glucose 122 H (78-110) mg/dL Calculated Osmolality 291.0 (267-292) mOsm/kg Calcium 6.8 L (8.7-10.7) mg/dL Magnesium (1.6-2.4) mg/dL Total Bilirubin (0.3-1.2) mg/dL AST (8-39) IU/L ALT (9-52) IU/L Alkaline Phosphatase (38-126) IU/L Total Protein (6.1-8.0) g/dL Albumin (3.5-4.8) g/dL Globulin (2.50-4.10) g/dL Albumin/Globulin Ratio (1.3-2.0) mg/g Ur Collection Type Urine Color Urine Clarity (CLEAR) Urine pH (5.0-8.5) Ur Specific [place] (1.005-1.030) Urine Protein (NEG) mg/dl Urine Glucose (UA) (NEG) mg/dL Urine Ketones (NEG) Urine Occult Blood (NEG) Urine Nitrate (NEG) Urine Bilirubin (NEG) Urine Urobilinogen (0.2) mg/dL Ur Leukocyte Esterase (NEG) Urine RBC (NONE) /hpf Urine WBC (NONE) Ur Squamous Epith Cells (NONE) Ur Renal Epithelial Cell (NONE) Urine Crystals Urine Bacteria (NONE) Urine Casts Urine Mucus (NONE) Urine Trichomonas (NONE) Urine Yeast (NONE) Blood Type Antibody Screen Crossmatch 06/08/16 06/08/16 06/09/16 Range/Units 04:19 23:07 11:30 WBC 9.84 10.42 9.96 (4.8-10.8) 10^3/uL RBC 2.57 L 3.55 L 3.79 L (4.20-5.40) 10^6/uL Hgb 7.7 L 10.7 L 11.5 L (12.0-16.0) g/dL Hct 24.4 L 31.8 L 34.3 L (37.0-47.0) % MCV 94.9 89.6 90.5 (81-99) FL MCH 30.0 30.1 30.3 (27-31) PG MCHC 31.6 L 33.6 33.5 (33-37) g/dL RDW Std Deviation 56.0 H 52.8 H 54.5 H (39-50) fL RDW Coeff of Nava 17.0 H 16.8 H 17.0 H (11.5-14.5) % Plt Count 160 151 167 (140-350) 10*3/uL MPV 11.7 10.7 10.7 (7.4-12.2) FL Immature Gran % (Auto) (0-5) % Neut % (Auto) (50-80) % Lymph % (Auto) (10-50) % Hickman % (Auto) (5-15) % Eos % (Auto) (0-8) % Baso % (Auto) (0-1) % Immature Gran # (Auto) 10*3/UL Neut # (Auto) 10*3/UL Lymph # (Auto) 10*3/uL Hickman # (Auto) (0.3-0.8) 10*3/UL Eos # (Auto) 10*3/UL Baso # (Auto) 10*3/UL WBC Morphology Comment (NORM) Plt Morphology Comment (NORM) RBC Morph Comment (NORM) PT (9.7-11.4) secs INR (0.00-5.90) N/A Sodium 144 143 (135-145) meq/L Potassium 3.6 L 3.9 (3.8-5.2) meq/L Chloride 115 H 114 H (98-112) meq/L Carbon Dioxide 23 24 (23-33) meq/L Anion Gap 6 5 (5-20) BUN 16 23 H (7-22) mg/dL Creatinine 0.7 0.7 (0.50-1.20) mg/dL Estimated GFR (>60 ml/min/1.73m(2)) BUN/Creatinine Ratio 22.85 H 32.85 H (6-20) Glucose 96 105 (78-110) mg/dL Calculated Osmolality 298.0 H 299.0 H (267-292) mOsm/kg Calcium 7.2 L 8.0 L (8.7-10.7) mg/dL Magnesium (1.6-2.4) mg/dL Total Bilirubin 0.6 1.3 H D (0.3-1.2) mg/dL AST 30 30 (8-39) IU/L ALT 27 26 (9-52) IU/L Alkaline Phosphatase 52 62 (38-126) IU/L Total Protein 3.8 L 4.7 L (6.1-8.0) g/dL Albumin 1.7 L 2.2 L (3.5-4.8) g/dL Globulin 2.1 L 2.5 (2.50-4.10) g/dL Albumin/Globulin Ratio 0.80 L 0.80 L (1.3-2.0) mg/g Ur Collection Type Urine Color Urine Clarity (CLEAR) Urine pH (5.0-8.5) Ur Specific [place] (1.005-1.030) Urine Protein (NEG) mg/dl Urine Glucose (UA) (NEG) mg/dL Urine Ketones (NEG) Urine Occult Blood (NEG) Urine Nitrate (NEG) Urine Bilirubin (NEG) Urine Urobilinogen (0.2) mg/dL Ur Leukocyte Esterase (NEG) Urine RBC (NONE) /hpf Urine WBC (NONE) Ur Squamous Epith Cells (NONE) Ur Renal Epithelial Cell (NONE) Urine Crystals Urine Bacteria (NONE) Urine Casts Urine Mucus (NONE) Urine Trichomonas (NONE) Urine Yeast (NONE) Blood Type Antibody Screen Crossmatch 06/10/16 06/12/1606/12/17 Range/Units 06:19 05:41 17:02 WBC 8.11 7.53 (4.8-10.8) 10^3/uL RBC 3.49 L 3.51 L (4.20-5.40) 10^6/uL Hgb 10.5 L 10.2 L (12.0-16.0) g/dL Hct 32.0 L 32.5 L (37.0-47.0) % MCV 91.7 92.6 (81-99) FL MCH 30.1 29.1 (27-31) PG MCHC 32.8 L 31.4 L (33-37) g/dL RDW Std Deviation 53.2 H 51.2 H (39-50) fL RDW Coeff of Nava 16.7 H 15.8 H (11.5-14.5) % Plt Count 148 194 (140-350) 10*3/uL MPV 10.9 10.7 (7.4-12.2) FL Immature Gran % (Auto) 0.9 (0-5) % Neut % (Auto) 73.7 (50-80) % Lymph % (Auto) 11.5 (10-50) % Hickman % (Auto) 11.2 (5-15) % Eos % (Auto) 2.5 (0-8) % Baso % (Auto) 0.2 (0-1) % Immature Gran # (Auto) 0.07 10*3/UL Neut # (Auto) 5.98 10*3/UL Lymph # (Auto) 0.93 10*3/uL Hickman # (Auto) 0.91 H (0.3-0.8) 10*3/UL Eos # (Auto) 0.20 10*3/UL Baso # (Auto) 0.02 10*3/UL WBC Morphology Comment Normal morphology (NORM) Plt Morphology Comment Normal morphology (NORM) RBC Morph Comment Normal morphology (NORM) PT (9.7-11.4) secs INR (0.00-5.90) N/A Sodium 142 140 140 (135-145) meq/L Potassium 3.9 2.9 L 3.4 L (3.8-5.2) meq/L Chloride 112 108 107 (98-112) meq/L Carbon Dioxide 26 28 27 (23-33) meq/L Anion Gap 4 L 4 L 6 (5-20) BUN 20 20 20 (7-22) mg/dL Creatinine 0.7 0.6 0.6 (0.50-1.20) mg/dL Estimated GFR (>60 ml/min/1.73m(2)) BUN/Creatinine Ratio 28.57 H 33.33 H 33.33 H (6-20) Glucose 77 L 95 103 (78-110) mg/dL Calculated Osmolality 295.0 H 292.0 292.0 (267-292) mOsm/kg Calcium 7.5 L 7.6 L 7.7 L (8.7-10.7) mg/dL Magnesium 1.8 (1.6-2.4) mg/dL Total Bilirubin 1.4 H (0.3-1.2) mg/dL AST 29 (8-39) IU/L ALT 24 (9-52) IU/L Alkaline Phosphatase 51 (38-126) IU/L Total Protein 4.0 L (6.1-8.0) g/dL Albumin 1.9 L (3.5-4.8) g/dL Globulin 2.1 L (2.50-4.10) g/dL Albumin/Globulin Ratio 0.90 L (1.3-2.0) mg/g Ur Collection Type Urine Color Urine Clarity (CLEAR) Urine pH (5.0-8.5) Ur Specific [place] (1.005-1.030) Urine Protein (NEG) mg/dl Urine Glucose (UA) (NEG) mg/dL Urine Ketones (NEG) Urine Occult Blood (NEG) Urine Nitrate (NEG) Urine Bilirubin (NEG) Urine Urobilinogen (0.2) mg/dL Ur Leukocyte Esterase (NEG) Urine RBC (NONE) /hpf Urine WBC (NONE) Ur Squamous Epith Cells (NONE) Ur Renal Epithelial Cell (NONE) Urine Crystals Urine Bacteria (NONE) Urine Casts Urine Mucus (NONE) Urine Trichomonas (NONE) Urine Yeast (NONE) Blood Type Antibody Screen Crossmatch 06/13/16 06/14/16 Range/Units 05:30 05:34 WBC (4.8-10.8) 10^3/uL RBC (4.20-5.40) 10^6/uL Hgb (12.0-16.0) g/dL Hct (37.0-47.0) % MCV (81-99) FL MCH (27-31) PG MCHC (33-37) g/dL RDW Std Deviation (39-50) fL RDW Coeff of Nava (11.5-14.5) % Plt Count (140-350) 10*3/uL MPV (7.4-12.2) FL Immature Gran % (Auto) (0-5) % Neut % (Auto) (50-80) % Lymph % (Auto) (10-50) % Hickman % (Auto) (5-15) % Eos % (Auto) (0-8) % Baso % (Auto) (0-1) % Immature Gran # (Auto) 10*3/UL Neut # (Auto) 10*3/UL Lymph # (Auto) 10*3/uL Hickman # (Auto) (0.3-0.8) 10*3/UL Eos # (Auto) 10*3/UL Baso # (Auto) 10*3/UL WBC Morphology Comment (NORM) Plt Morphology Comment (NORM) RBC Morph Comment (NORM) PT (9.7-11.4) secs INR (0.00-5.90) N/A Sodium 140 139 (135-145) meq/L Potassium 3.9 3.5 L (3.8-5.2) meq/L Chloride 108 107 (98-112) meq/L Carbon Dioxide 28 28 (23-33) meq/L Anion Gap 4 L 4 L (5-20) BUN 18 17 (7-22) mg/dL Creatinine 0.5 0.5 (0.50-1.20) mg/dL Estimated GFR (>60 ml/min/1.73m(2)) BUN/Creatinine Ratio 36.00 H 34.00 H (6-20) Glucose 89 101 (78-110) mg/dL Calculated Osmolality 290.0 289.0 (267-292) mOsm/kg Calcium 7.6 L 7.7 L (8.7-10.7) mg/dL Magnesium 2.7 H (1.6-2.4) mg/dL Total Bilirubin (0.3-1.2) mg/dL AST (8-39) IU/L ALT (9-52) IU/L Alkaline Phosphatase (38-126) IU/L Total Protein (6.1-8.0) g/dL Albumin (3.5-4.8) g/dL Globulin (2.50-4.10) g/dL Albumin/Globulin Ratio (1.3-2.0) mg/g Ur Collection Type Urine Color Urine Clarity (CLEAR) Urine pH (5.0-8.5) Ur Specific [place] (1.005-1.030) Urine Protein (NEG) mg/dl Urine Glucose (UA) (NEG) mg/dL Urine Ketones (NEG) Urine Occult Blood (NEG) Urine Nitrate (NEG) Urine Bilirubin (NEG) Urine Urobilinogen (0.2) mg/dL Ur Leukocyte Esterase (NEG) Urine RBC (NONE) /hpf Urine WBC (NONE) Ur Squamous Epith Cells (NONE) Ur Renal Epithelial Cell (NONE) Urine Crystals Urine Bacteria (NONE) Urine Casts Urine Mucus (NONE) Urine Trichomonas (NONE) Urine Yeast (NONE) Blood Type Antibody Screen Crossmatch Procedures: See surgical report by Dr. East regarding open reduction internal fixation. Patient Problems - Patient Problem List (1) Hip fracture Current Visit: Yes Status: Acute Qualifiers: Encounter type: initial encounter Fracture type: closed Laterality : left Qualified Description: Fracture of hip, left, closed, initial encounter Qualifier Code(s): (S72.002A) Fracture of unspecified part of neck of left femur, initial encounter for closed fracture (2) Stasis edema of left lower extremity Current Visit: Yes Status: Acute (3) Anemia Current Visit: Yes Status: Acute Qualifiers: Anemia type: unspecified type Qualified Description: Anemia, unspecified type Qualifier Code(s): (D64.9) Anemia, unspecified (4) Status post-operative repair of closed fracture of left hip Current Visit: Yes Status: Acute (5) Dementia Current Visit: No Status: Acute Qualifiers: Dementia type: Alzheimer's disease Alzheimer's disease onset: unspecified onset Dementia behavioral disturbance: without behavioral disturbance Qualified Description: Alzheimer's dementia without behavioral disturbance, unspecified timing of dementia onset Qualifier Code(s): ( G30.9) Alzheimer's disease, unspecified, (F02.80) Dementia in other diseases classified elsewhere without behavioral disturbance
--- NOTE | 2016-06-17 09:58 | OT PM DAY ---
Diagnosis : Left Hip Fracture PM - Occupational Therapy S: The patient had difficulty giving subjective information, but did say "owe" one time. She is having a severe amount of drainage from her left hip. She had soaked the entire pad underneath her hip. O: The therapist worked with the nursing staff to have the patient perform standing activities to change the dressing. The patient required max assist x2 in order to stand three different times. The first time the patient was able to stand x2 minutes to doff the dressing. We gave her a little bit of a rest break. She then stood again x3 minutes while we donned the dressing. The patient had difficulty standing for longer periods of time but with max assist was able to do so. The patient sat again. We then had her transfer from the chair to the bed with max assist x1 for stand pivot transfer. She then required max assist x2 to transfer back into bed. The therapist then worked the patient's arms into flexion, abduction, elbow flexion/extension, and wrist flexion/extension x10 minutes while supine in bed. She was positioned comfortably with pillows between her legs and positioned on her right side slightly. Her call button was left within reach; however, the patient is not cognizant enough to use call button. A: Our main concern right now is the severe amount of drainage. She is still too cognitively impaired and physically impaired to complete activities. P: Continue seeing patient BID during the week and one time per day over the weekend for upper extremity strengthening, ADLs, and overall functional mobility. DANIELLE
== END 2016-06-14 11:11 | DRG 482 ==
LOC: ER 11:16 → MED/SURG 12:56 → OPS 14:30 → MED/SURG 21:34
PROVIDERS: ADMIT Internal Medicine; ATTEND Internal Medicine
PROC: 30233N1 Transfusion of Nonautologous Red Blood Cells into Peripheral Vein, Percutaneous Approach (ICD-10-PCS; 2016-06-06)
PROC: 0QS704Z Reposition Left Upper Femur with Internal Fixation Device, Open Approach (ICD-10-PCS; principal; 2016-06-06 16:00)
DX: S32.592A Other specified fracture of left pubis, initial encounter for closed fracture (principal); W18.39XA Other fall on same level, initial encounter; S72.22XA Displaced subtrochanteric fracture of left femur, initial encounter for closed fracture; I87.302 Chronic venous hypertension (idiopathic) without complications of left lower extremity; D64.9 Anemia, unspecified; F03.90 Unspecified dementia, unspecified severity, without behavioral disturbance, psychotic disturbance, mood disturbance, and anxiety
CPT/HCPCS: 36415; 36430; 71010; 73502; 76001; 80048; 80053; 81001; 83735; 85014; 85018; 85025; 85027; 85610; 86850; 86900; 86901; 86922; 87641; 93005; 93010; 94150; 94761; 96374; 96375; 97110; 97161; 97165; 97530; 97535; 99204; 99285; A4216; J0690; J1940; J2250; J2270; J2405; J3010; J3480; J7030; J7040; J7050; J7120; J7512; P9016